=== PATIENT | male | born 1975 | race African-American/Black ===

== ENCOUNTER 2019-01-18 02:23 | Emergency (ER) | payer OTHER ==
--- NOTE | 2019-01-18 02:25 | PDOC ---
History of Present Illness - General Chief Complaint: Constipation Stated Complaint: CONSTIPATION Time Seen by Provider: 01/18/19 02:25 - History of Present Illness Initial Comments: 01/18/19 03:03 This 43-year-old man with a history of gout and renal colic but no other chronic illnesses presents with a few day history of constipation. Patient states that about 4 days ago, he noted smaller bowel movements than normal. Over the last 48 hours, the patient has had difficulty having bowel movement, stating that his stool was very hard. He has taken stool softeners and Ex-Lax today without successful bowel movement. He denies significant abdominal pain or nausea/vomiting. No history of gastrointestinal issues. He states that he is constipated "rarely" ; he does not eat much fiber in his diet. The only recent dietary change that he can recall is eating more pizza than usual. He denies any daily medications Past History - Past Medical History Allergies/Adverse Reactions: Allergies Allergy/AdvReac Type Severity Reaction Status Date / Time No Known Allergies Allergy Verified 02/26/16 10:16 Home Medications: Ambulatory Orders Oxycodone HCl/Acetaminophen [Percocet 5-325 mg Tablet] 1 - 2 tab PO Q6H #10 tab MDD 8 02/26/16 Tamsulosin HCl [Flomax -] 0.4 mg PO DAILY #14 capsule 02/26/16 - Suicide/Smoking/Psychosocial Hx Smoking Status: No Smoking History: Never smoked Number of Cigarettes Smoked Daily: 0 Hx Alcohol Use: No Drug/Substance Use Hx: No Substance Use Type: None Review of Systems - Review of Systems Able to Perform ROS?: Yes Comments:: 12 point review of systems is negative except for what is noted in the history of present illness *Physical Exam - Physical Exam Comments: GENERAL: Adult male, alert and oriented times 3 in no acute distress ABDOMEN:.normal bowel sounds No guarding,tenderness or rebound.No masses No distention. RECTAL: No evidence of external hemorrhoids/fissures or other abnormality of the anus Moderately hard stool felt just beyond rectal ampulla; no masses or other abnormality EXTREMITIES: Normal range of motion, no edema. No clubbing or cyanosis. No erythema, or tenderness. NEUROLOGICAL: Cranial nerves II through XII grossly intact. Normal speech. No focal neurological deficits. Medical Decision Making - Medical Decision Making This 43-year-old man without significant chronic illness or ingestion of medications causing constipation, presents with a few day history of difficulty in having a bowel movement . No significant abdominal pain or vomiting. Exam as noted Manual disimpaction of hard stool felt in the rectum attempted but stool could not be reached. Since patient is not debilitated, administration of commercially available enemas can be done at home. Patient is instructed to start with oil retention enema followed by water-based enema. Also, advised regarding daily fiber, both increased in the diet through fruits/vegetables and through daily supplement such as Metamucil or Citrucel. He should drink plenty of water daily. Laxatives such as MiraLAX/mag citrate also discussed. The patient should return to the emergency room if he has severe abdominal pain or vomiting. He should follow-up with his general medical doctor within the next 5-7 days *DC/Admit/Observation/Transfer Diagnosis at time of Disposition: Constipation Qualifiers: Constipation type: unspecified constipation type Qualified Code(s): K59.00 - Constipation, unspecified - Discharge Dispostion Disposition: HOME Condition at time of disposition: Stable - Referrals - Patient Instructions Printed Discharge Instructions: Constipation Additional Instructions: Use oil-based enema followed by water-based enema tonight as discussed Drink plenty of water Metamucil/Citrucel daily as described; increase fruits and vegetables in your diet Consider MiraLAX daily if you find you are becoming constipated more frequently Return to ER if you have worsening abdominal pain or experience nausea/vomiting Follow-up with your doctor within the next 5 days - Post Discharge Activity
[2019-01-18 02:28] VITALS: BP 126/90; PULSE 104; TEMP 98.5; BMI 50.4
== END 2019-01-18 02:58 | disposition home or self-care (01) ==
LOC: FER 02:23
DX: K59.00 Constipation, unspecified (principal); Z87.442 Personal history of urinary calculi
CPT/HCPCS: 99281-25

== ENCOUNTER 2019-08-06 20:19 | Inpatient (IN) | payer OTHER ==
[2019-08-06] MEDS ORDERED: ASPIRIN 81 MG CHEWABLE TABLETS PO ONE (20:35)
--- NOTE | 2019-08-06 20:37 | PDOC ---
Rapid Medical Evaluation Chief Complaint: Shortness of Breath Time Seen by Provider: 08/06/19 20:33 Medical Evaluation: Allergies Allergy/AdvReac Type Severity Reaction Status Date / Time No Known Allergies Allergy Verified 02/26/16 10:16 08/06/19 20:35 Pt c/o: sudden onset of CP while at work performing mod strenous activity, no SOB, no med hx, no calf pain, no sx or travel pta on brief exam: lcta, o2 sat 94 with hr at 110, Pt ordered for: cardiac w/u , d- dimer, o2 Pt to proceed to the ED Discharge Disposition - Diagnosis Chest tightness, Pulmonary embolism - Discharge Dispostion Condition at time of disposition: Guarded - Referrals - Patient Instructions - Post Discharge Activity
[2019-08-06] MEDS ORDERED: ASPIRIN 81 MG CHEWABLE TABLETS ONE (20:44)
--- NOTE | 2019-08-06 20:44 | PDOC ---
Attending Attestation - Resident Resident Name: YordanjesusWing - ED Attending Attestation I have performed the following: I have examined & evaluated the patient, The case was reviewed & discussed with the resident, I agree w/resident's findings & plan, Exceptions are as noted - HPI HPI: 08/06/19 21:12 Mr. 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 This morning while at work, he was lifting something heavy and noted chest pain Since then he has had midsternal chest pain which is intermittent, no radiation to the arm, jaw, back Pain is exacerbated by lifting, walking Pain has been present since 9 am and has not improved Pt notes feeling winded, and short of breath He has to go up 2 flights of stairs to get home and when he did that today, he felt very breathless He has had not significant cough or fever No prior episodes like this Most recent travel was to [place] in April No prior [place] No personal history of DM, HTN, HLD Pt does not use tobacco, marijuanna, vape or alcohol in excess - Physicial Exam PE: 08/06/19 20:46 GENERAL: The patient is in no acute distress, obese ENT: Ears normal, nares patent, oropharynx clear without exudates. Moist mucous membranes. NECK: Normal range of motion, supple LUNGS: Breath sounds equal, clear to auscultation bilaterally. No wheezes, and no crackles. HEART:Regular rate and rhythm, normal S1 and S2 without murmur, rub or gallop. ABDOMEN: Soft, nontender, normoactive bowel sounds. EXTREMITIES: Normal range of motion, no edema. NEUROLOGICAL: Cranial nerves II through XII grossly intact. Normal speech. No focal neurological deficits. SKIN: Warm, Dry, normal turgor, no rashes or lesions noted. 08/06/19 21:17 - Critical Care Time Total Critical Care Time: 120 Critical Care Statement: The care of this patient involved high complexity decision making to prevent further life threatening deterioration of the patient 's condition and/or to evaluate & treat vital organ system(s) failure or risk of failure. - Medical Decision Making 08/06/19 20:44 EKG: ST rate of 106 bpm, axis nml, intervals nml (pr:146ms, QRS:90ms, QTc:459ms) , no ST elevation, t wave inversions noted II, III, aVF, v3-v6 There are not prior EKGs for comparison 08/06/19 20:45 08/06/19 21:17 Pt differential is broad and includes cardiac ischemia, pe, asthma exacerbation, pneumonia, pneumothorax, pleural effusion, costochondritis, pericarditis, GERD. Will do: Labs CXR Possibly CTA Re Assess 08/06/19 21:33 CXR: no infiltrate seen, no cardiomegaly, no mediastinal widening, no pleural effusion 08/06/19 21:34 Laboratory Tests 08/06/19 08/06/19 20:21 20:21 WBC 10.7 H Hgb 15.1 Hct 45.9 Plt Count 230 INR 1.16 H 08/06/19 21:[address] scan to bring this patient over for CTA He tells me that he is by himself and already has 3 patients waiting Laboratory Tests 08/06/19 08/06/19 20:21 20:51 D-Dimer 7111 H Urine Blood 1+ H Urine Nitrite Negative Ur Leukocyte Esterase Negative 08/06/19 23:[address] Azar re: CT finding Pt has central PE Guiaic Heparin ICU Sub massive PE
--- NOTE | 2019-08-06 20:55 | PDOC ---
History of Present Illness - General Chief Complaint: Shortness of Breath Stated Complaint: SHORTNESS BREATHING Time Seen by Provider: 08/06/19 20:33 - History of Present Illness Initial Comments: The pt is a 43M w/ a history of gout who presents for evaluation of 12 hours of shortness of breath and intermittent chest tightness. The shortness of breath and tightness started while lifting things at work, is worse with exertion, and mildly improved with rest, it has not completely resolved at any point throughout the day. He endorses current mild SOB and chest tightness. He denies HUNT, vision changes, fevers/chills, N/V/C/D, dysuria, hematuria, or blood in his stool. 08/06/19 20:57 Past History - Past Medical History Allergies/Adverse Reactions: Allergies Allergy/AdvReac Type Severity Reaction Status Date / Time No Known Allergies Allergy Verified 02/26/16 10:16 Home Medications: Ambulatory Orders Oxycodone HCl/Acetaminophen [Percocet 5-325 mg Tablet] 1 - 2 tab PO Q6H #10 tab MDD 8 02/26/16 Tamsulosin HCl [Flomax -] 0.4 mg PO DAILY #14 capsule 02/26/16 COPD: No Other medical history: GOUT - Immunization History Immunization Up to Date: No - Psycho Social/Smoking Cessation Hx Smoking Status: No Smoking History: Never smoked Number of Cigarettes Smoked Daily: 0 Information on smoking cessation initiated: No Hx Alcohol Use: No Drug/Substance Use Hx: No Substance Use Type: None Review of Systems - Review of Systems Able to Perform ROS?: Yes Comments:: GENERAL/CONSTITUTIONAL: No fever or chills. No weakness HEAD, EYES, EARS, NOSE AND THROAT: No change in vision. No change in hearing. No sore throat CARDIOVASCULAR: +chest tightness/SOB RESPIRATORY: Denies cough, hemoptysis GASTROINTESTINAL: No nausea, vomiting, diarrhea or constipation GENITOURINARY: No dysuria, frequency, or change in urination MUSCULOSKELETAL: No joint or muscle swelling or pain. No neck or back pain SKIN: No rash NEUROLOGIC: No headache, vertigo, loss of consciousness, or change in strength/ sensation ENDOCRINE: No increased thirst. No abnormal weight change HEMATOLOGIC/LYMPHATIC: No anemia, easy bleeding, or history of blood clots ALLERGIC/IMMUNOLOGIC: No hives or skin allergy 08/06/19 20:55 Is the patient limited [place] proficient: No *Physical Exam - Vital Signs Last Vital Signs Temp Pulse Resp BP Pulse Ox 98.4 F 112 H 17 160/85 95 08/06/19 20:33 08/06/19 20:33 08/06/19 20:33 08/06/19 20:33 08/06/19 20:33 - Physical Exam Comments: GENERAL: Awake, alert, and oriented to person/place/time, in no acute distress HEAD: No signs of trauma, normocephalic, atraumatic EYES: PERRLA, EOMI, sclera anicteric, conjunctiva clear ENT: Hearing grossly normal, nares patent, oropharynx clear without exudates. Moist mucosa LUNGS: No distress, speaks in full sentences, clear to auscultation bilaterally HEART: Regular rate and rhythm, normal S1 and S2, no murmurs appreciated, peripheral pulses normal and equal bilaterally ABDOMEN: Soft, protuberant, nontender, normoactive bowel sounds. No guarding, no rebound EXTREMITIES: Normal inspection, Normal range of motion, no edema. No clubbing or cyanosis NEUROLOGICAL: Cranial nerves II through XII grossly intact. Normal speech, normal gait, no focal sensorimotor deficits SKIN: Warm, Dry 08/06/19 20:55 ED Treatment Course - LABORATORY CBC & Chemistry Diagram: 08/06/19 20:21 08/06/19 20:21 Medical Decision Making - Medical Decision Making The pt is a 43M w/ a history of gout who presents for evaluation of 12 hours of shortness of breath and intermittent chest tightness. ED Course Labs ordered from E CXR ECG ASA 162mg PO once 08/06/19 21:16 D-dimer elevated -Will obtain CTA chest WBC 10.7 Hbg 15.1 Trop I 0.14 LFTs wnl Case discussed w/ Dr. Ellis -Will obtain ECHO and start heparin gtt ICU consulted Will admit under Dr. Levy 08/06/19 23:21 Discharge - Discharge Information Problems reviewed: Yes Clinical Impression/Diagnosis: Chest tightness Pulmonary embolism Qualifiers: Pulmonary embolism type: saddle Chronicity: acute Acute cor pulmonale presence : without acute cor pulmonale Qualified Code(s): I26.92 - Saddle embolus of pulmonary artery without acute cor pulmonale Condition: Guarded - Admission Yes - Follow up/Referral - Patient Discharge Instructions - Post Discharge Activity
[2019-08-06 21:02] LABS: BASO % 1.4 % (0-2.0); EOS % 2.7 % (0-4.5); HEMATOCRIT 45.9 % (35.4-49); HEMOGLOBIN 15.1 GM/dL (11.7-16.9); LYMPH % 33.7 % (8-40); MCHC 32.8 g/dl (32.0-35.9); MEAN CELL VOLUME 88.5 fl (80-96); MEAN PLT VOLUME 8.2 fl (7.5-11.1); MONO % 9.9 % (3.8-10.2); NEUT % 52.3 % (42.8-82.8); PLATELET COUNT 230 K/MM3 (134-434); RBC 5.19 M/mm3 (4.00-5.60); RDW 14.2 % (11.9-15.9); WHITE BLOOD COUNT 10.7 K/mm3 (4.0-10.0)
[2019-08-06 21:04] LABS: EPI CELLS 0.7 /HPF (0-5/HPF); HYALINE CASTS 3 /lpf (0-8); URINE APPEARANCE CLEAR; URINE BACTERIA 0.2 /hpf (NEGATIVE); URINE BILIRUBIN NEGATIVE (NEGATIVE); URINE COLOR YELLOW; URINE GLUCOSE (UA) NEGATIVE (NEGATIVE); URINE KETONE TRACE (NEGATIVE); URINE LEUK ESTERASE NEGATIVE (NEGATIVE); URINE NITRITE NEGATIVE (NEGATIVE); URINE PROTEIN NEGATIVE (NEGATIVE); URINE RBC 4 /hpf (0-4); URINE UROBILINOGEN 0.2 mg/dL (0.2-1.0); URINE WBC 1 /hpf (0-5)
[2019-08-06 21:24] LABS: INR 1.16 (0.83-1.09); PROTHROMBIN TIME (PATIENT) 13.7 SEC (9.7-13.0)
[2019-08-06 21:35] LABS: ALBUMIN 3.6 g/dl (3.4-5.0); BILIRUBIN,TOTAL 0.4 mg/dL (0.2-1); BLOOD UREA NITROGEN 15.6 mg/dL (7-18); CALCIUM 8.8 mg/dL (8.5-10.1); CREATININE 1.3 mg/dL (0.55-1.3); MAGNESIUM 1.9 mg/dL (1.8-2.4); POTASSIUM 3.8 mmol/L (3.5-5.1); TOT PROT 7.6 g/dl (6.4-8.2)
[2019-08-06] MEDS ORDERED: HEPARIN NA (PORCINE) 5,000 UNITS/ML 1ML VIAL IVPUSH PRN (23:17)
[2019-08-06 23:26] LABS: ACTIVATED PTT 38.8 SECONDS (25.2-36.5)
[2019-08-06] MEDS ORDERED: HEPARIN INFUSION - 25,000 UNITS/500 ML INFUS.BAG IVPB ONE (23:54)
[2019-08-07] MEDS: HEPARIN - 25,000 UNIT in SODIUM CHLORIDE 495 ML IV SCH (00:21)
--- NOTE | 2019-08-07 00:52 | CONSULT ---
Consultation: REQUESTING PROVIDER: Dr. Masterson CONSULT REQUEST: We have been asked to medically evaluate this patient for saddle PE. HISTORY OF PRESENT ILLNESS: 43 y/o M with PMH morbid obesity, gout, lumbar herniated disc, who presented for sudden SOB that occurred this AM. 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 States that he is used to this physical work, however today he became increasingly SOB while working. "Started to gasp for air." His coworkers recommended some stretching exercises, which helped relieve his discomfort. Pt went about his work day, and later in the evening, he had increased STOVER while ascending his stairs, which he usually does not have. For this reason, he came to the ED for further evaluation. In the ED, pt with desaturation to low 90's, improved on 2L NC. Also with sinus tach of low 100's. D-dimer elevated, thus pt underwent CTA which revealed prominent acute embolus in distal aspect of R pulm artery, extending into R lower lobar artery. Also with saddle embolus along bifurcation of the main pulm a. trunk. Pt started on hep gtt. Currently hemodynamically stable w/ BP 140/90, sat high 90' s on 2L NC. ICU consulted for saddle PE and concern of potential decompensation / development of obstructive shock. Pt endorses recent 3hr car ride to [place] on Saturday. Traveled to [place] in April. Otherwise, without hemoptysis, hx malignancy, immobilization, recent sx , new medications, familial clotting d/o, smoking hx, or LE swelling or erythema. Denies HUNT, fever, chills, changes in urinary or bowel function. PMH: as above PsxH: tonsillectomy, septal deviation sx, auricular sx meds: colchicine, allopurinol allergies: NKDA FH: parents - HTN, DM, HLD SH: works for [employer]. denies cigarette or recreational drug use. drinks alcohol rarely REVIEW OF SYSTEMS: +SOB +chest pressure PHYSICAL EXAMINATION Vital Signs - 24 hr 08/06/19 08/06/19 08/06/19 20:33 21:14 23:27 Temperature 98.4 F Pulse Rate 112 H 104 H Pulse Rate [ 104 H 95 H Left] Respiratory 17 20 16 Rate Blood Pressure 160/85 Blood Pressure 145/105 H 144/89 [Left Arm] O2 Sat by Pulse 95 97 93 L Oximetry (%) GENERAL: Awake, alert, and fully oriented, resting. in NAD on 2L NC HEAD: Normal with no signs of trauma. EYES: Pupils equal, round and reactive to light, extraocular movements intact, sclera anicteric, conjunctiva clear. No lid lag. EARS, NOSE, THROAT: Ears normal, nares patent, oropharynx clear without exudates. Moist mucous membranes. NECK: Normal range of motion, supple LUNGS: CTA b/l. restricted inspiratory effort. HEART: tachycardic rate and rhythm, normal S1 and S2 without murmur, rub or gallop. ABDOMEN: Soft, obese, nontender, not distended, normoactive bowel sounds LOWER EXTREMITIES: 2+ pt pulses, warm, well-perfused. No calf tenderness. No peripheral edema. NEUROLOGICAL: Cranial nerves II-XII intact. Laboratory Results 08/06/19 08/06/19 08/06/19 20:21 20:21 20:21 WBC 10.7 H Hgb 15.1 Hct 45.9 Plt Count 230 PTT (Actin FS) 38.8 H D-Dimer Sodium 144 Potassium 3.8 Chloride 109 H Random Glucose 109 H Calcium 8.8 Magnesium 1.9 Creatine Kinase 446 H Troponin I 0.14 H Urine Blood Urine Urobilinogen 08/06/19 08/06/19 20:21 20:51 PTT (Actin FS) D-Dimer 7111 H Sodium Troponin I Urine Blood 1+ H Urine Nitrite Negative Urine Bilirubin Negative Urine Urobilinogen 0.2 EKG: sinus tach, +106bpm, nl axis, TWI 2,3 avF, v4-v6. no previous to compare to Chest CTA: prominent acute embolus is seen within the distal aspect of R pulm artery extending into R lower lobar artery. Note is also made of a saddle embolus along the bifurcation of the main pulmonary artery trunk. There appears to be mild leftward displacement of the interventricular cardiac septum suggestive of possible increased pulmonary arterial pressure. RH strain ASSESSMENT/PLAN: 43 y/o M with PMH morbid obesity, gout, lumbar herniated disc, who presented for sudden SOB that occurred this AM. CTA revealed prominent acute embolus in distal aspect of R pulm artery, extending into R lower lobar artery. Also with saddle embolus along bifurcation of the main pulm a. trunk. ICU consulted for saddle PE and concern of potential decompensation/ development of obstructive shock. #Neuro -AAO x 3, neuro intact #Pulm +acute embolus distal R pulm artery, extending into R lower lobar artery +saddle PE -wells for PE: score 1.5. low risk . pt w/ gout can be risk fx per some studies -risk fx: morbid obesity, recent trip [place] -w/submassive PE, currently hemodynamically stable -c/w NC 02 as needed to maintain sat -started on hep gtt. discussed risks and benefits w/ pt of a/c. agreeable no contraindications -f/u ECHO to check for RH strain. w/ troponins 0.14. c/t trend -will need hypercoaguability w/u -f/u duplex LE check for DVT -ER staff d/w IR. pending ECHO, review of images to determine if needs thrombolysis #F/E/N not requiring IVF at this time continue to follow lytes NPO in case of procedure AM #PPX hep gtt #Dispo admit to ICU Dispo: We will continue to follow the patient. Thank you for this consultative opportunity. Visit type - Emergency Visit Emergency Visit: Yes ED Registration Date: 08/06/19 Care time: The patient presented to the Emergency Department on the above date and was hospitalized for further evaluation of their emergent condition. - New Patient This patient is new to me today: Yes Date on this admission: 08/07/19 - Critical Care Critical Care patient: Yes Total Critical Care Time (in minutes): 46 Critical Care Statement: The care of this patient involved high complexity decision making to prevent further life threatening deterioration of the patient 's condition and/or to evaluate & treat vital organ system(s) failure or risk of failure.
[2019-08-07 07:15] LABS: BASO % 0.4 % (0-2.0); EOS % 3.5 % (0-4.5); HEMATOCRIT 42.7 % (35.4-49); HEMOGLOBIN 14.2 GM/dL (11.7-16.9); LYMPH % 43.6 % (8-40); MCH 29.6 pg (25.7-33.7); MCHC 33.3 g/dl (32.0-35.9); MEAN CELL VOLUME 89.1 fl (80-96); MEAN PLT VOLUME 8.3 fl (7.5-11.1); MONO % 9.3 % (3.8-10.2); NEUT % 43.2 % (42.8-82.8); PLATELET COUNT 202 K/MM3 (134-434); RBC 4.79 M/mm3 (4.00-5.60); WHITE BLOOD COUNT 7.4 K/mm3 (4.0-10.0)
[2019-08-07 07:25] LABS: BLOOD UREA NITROGEN 12.9 mg/dL (7-18); CALCIUM 8.7 mg/dL (8.5-10.1); CREATININE 1.1 mg/dL (0.55-1.3); POTASSIUM 3.7 mmol/L (3.5-5.1)
[2019-08-07 08:03] LABS: INR 1.08 (0.83-1.09); PROTHROMBIN TIME (PATIENT) 12.7 SEC (9.7-13.0)
[2019-08-07 09:44] LABS: ACTIVATED PTT 49.2 SECONDS (25.2-36.5)
[2019-08-07] MEDS: HEPARIN NA (PORCINE) 5,000 UNITS/ML 1ML VIAL IVPUSH PRN (09:53)
[2019-08-07] MEDS ORDERED: MUPIROCIN 2% TOPICAL OINTMENT FOR DECOLONIZATION NS SCH (10:00)
--- NOTE | 2019-08-07 10:27 | ECHO ---
Name: PATSY LOPEZ Exam:Adult Echocardiogram Study Date: 08/07/2019 07:33 AM Age: 43 yrs Reason For Study: Pericardial Effusion Height: 69 in Weight: 300 lb BSA: 2.5 m2 Procedure The study was technically difficult with many images being suboptimal in quality. Left Ventricle Left ventricular systolic function is grossly normal. Ejection Fraction = 50-55%. The transmitral spe ctral Doppler flow pattern is normal for age. Right Ventricle The right ventricle is not well visualized. The right ventricle is mildly dilated. The right ventricu lar systolic function is grossly normal. Atria Normal left and right atrial size and function. Mitral Valve The mitral valve is normal in structure and function. There is trace mitral regurgitation. Tricuspid Valve There is Trace to mild tricuspid regurgitation. There was insufficient TR detected to calculate RV sy stolic pressure. Aortic Valve The aortic valve opens well. No hemodynamically significant valvular aortic stenosis. No aortic regur gitation is present. Pulmonic Valve The pulmonic valve is not well seen, but is grossly normal. Trace pulmonic valvular regurgitation. Great Vessels The aortic root is normal size. Pericardium/Pleura There is no pericardial effusion. Interpretation Summary The study was technically difficult with many images being suboptimal in quality. Left ventricular systolic function is grossly normal. The right ventricle is not well visualized. The right ventricle is mildly dilated. The right ventricular systolic function is grossly normal. There is trace mitral regurgitation. There is Trace to mild tricuspid regurgitation. There was insufficient TR detected to calculate RV systolic pressure. There is no pericardial effusion. MD Cummings *Angie 08/07/2019 10:26 AM
--- NOTE | 2019-08-07 10:37 | PN ---
Teaching Attending Note Name of Resident: Destin Potter ATTENDING PHYSICIAN STATEMENT I saw and evaluated the patient. I reviewed the resident's note and discussed the case with the resident. I agree with the resident's findings and plan as documented. SUBJECTIVE: Patient seen and examined in the ICU. Awake and alert. Some mild left sided chest discomfort. No dizziness. For IR VTE intervention today. Intake & Output 08/04/19 08/05/19 08/06/19 08/07/19 23:59 23:59 23:59 23:59 Weight 329 lb 12.8 oz 329 lb 12.8 oz Last Vital Signs Temp Pulse Resp BP Pulse Ox 98.0 F 76 17 122/89 94 L 08/07/19 10:00 08/07/19 10:00 08/07/19 10:00 08/07/19 10:00 08/07/19 07:51 Active Medications Chlorhexidine Gluconate (Hibiclens For Decolonization -) 1 applic TP HS ALFONZO Heparin Sodium (Porcine) (Heparin -) 1,000 unit IVPUSH PRN PRN PRN Reason: Heparin Last Admin: 08/07/19 09:53 Dose: 1,000 unit Heparin Sodium (Porcine) (Heparin -) 5,000 unit IVPUSH PRN PRN PRN Reason: Heparin Heparin Sodium (Porcine) 25, (000 unit/ Sodium Chloride) 500 mls @ 20 mls/hr IV TITR ALFONZO; Protocol Last Admin: 08/07/19 00:21 Dose: 1,000 unit/hr, 20 mls/hr Influenza Virus Vaccine Quadrival (Flulaval Quad ) 60 mcg IM .ONCE ONE Stop: 08/07/19 11:01 Mupirocin (Bactroban Ointment (For Decolonization) -) 1 applic NS BID ALFONZO Stop: 08/12/19 09:59 GENERAL: Awake, alert, and oriented, NAD. HEAD: Normal with no signs of trauma. EYES: Pupils equal, round and reactive to light, extraocular movements intact, sclera anicteric, conjunctiva clear. No lid lag. EARS, NOSE, THROAT: Ears normal, nares patent, oropharynx clear without exudates. Moist mucous membranes. NECK: Normal range of motion, supple LUNGS: CTA b/l. restricted inspiratory effort. HEART: tachycardic rate and rhythm, normal S1 and S2 without murmur, rub or gallop. ABDOMEN: Soft, obese, nontender, not distended, normoactive bowel sounds LOWER EXTREMITIES: 2+ pt pulses, warm, well-perfused. No calf tenderness. No peripheral edema. NEUROLOGICAL: Non-focal Laboratory Results - last 24 hr 08/06/19 08/06/19 08/06/19 20:21 20:21 20:21 WBC 10.7 H RBC 5.19 Hgb 15.1 Hct 45.9 MCV 88.5 MCH 29.0 MCHC 32.8 RDW 14.2 Plt Count 230 MPV 8.2 Absolute Neuts (auto) 5.6 Neutrophils % 52.3 D Lymphocytes % 33.7 D Monocytes % 9.9 Eosinophils % 2.7 D Basophils % 1.4 D Nucleated RBC % 0 PT with INR 13.70 H INR 1.16 H PTT (Actin FS) 38.8 H D-Dimer Sodium 144 Potassium 3.8 Chloride 109 H Carbon Dioxide 27 Anion Gap 8 BUN 15.6 Creatinine 1.3 Est GFR (CKD-EPI)AfAm 77.45 Est GFR (CKD-EPI)NonAf 66.83 Random Glucose 109 H Calcium 8.8 Magnesium 1.9 Total Bilirubin 0.4 AST 35 ALT 48 Alkaline Phosphatase 75 Creatine Kinase 446 H Creatine Kinase Index 0.5 CK-MB (CK-2) 2.4 Troponin I 0.14 H Total Protein 7.6 Albumin 3.6 Urine Color Urine Appearance Urine pH Ur Specific [place] Urine Protein Urine Glucose (UA) Urine Ketones Urine Blood Urine Nitrite Urine Bilirubin Urine Urobilinogen Ur Leukocyte Esterase Urine WBC (Auto) Urine RBC (Auto) Urine Casts (Auto) U Epithel Cells (Auto) Urine Bacteria (Auto) Stool Occult Blood 08/06/19 08/06/19 08/07/19 20:21 20:51 01:00 WBC RBC Hgb Hct MCV MCH MCHC RDW Plt Count MPV Absolute Neuts (auto) Neutrophils % Lymphocytes % Monocytes % Eosinophils % Basophils % Nucleated RBC % PT with INR INR PTT (Actin FS) D-Dimer 7111 H Sodium Potassium Chloride Carbon Dioxide Anion Gap BUN Creatinine Est GFR (CKD-EPI)AfAm Est GFR (CKD-EPI)NonAf Random Glucose Calcium Magnesium Total Bilirubin AST ALT Alkaline Phosphatase Creatine Kinase Creatine Kinase Index CK-MB (CK-2) Troponin I Total Protein Albumin Urine Color Yellow Urine Appearance Clear Urine pH 6.0 Ur Specific [place] 1.022 Urine Protein Negative Urine Glucose (UA) Negative Urine Ketones Trace H Urine Blood 1+ H Urine Nitrite Negative Urine Bilirubin Negative Urine Urobilinogen 0.2 Ur Leukocyte Esterase Negative Urine WBC (Auto) 1 Urine RBC (Auto) 4 Urine Casts (Auto) 3 U Epithel Cells (Auto) 0.7 Urine Bacteria (Auto) 0.2 Stool Occult Blood Negative 08/07/19 08/07/19 08/07/19 06:40 06:40 06:40 WBC 7.4 RBC 4.79 Hgb 14.2 Hct 42.7 MCV 89.1 MCH 29.6 MCHC 33.3 RDW 14.0 Plt Count 202 MPV 8.3 Absolute Neuts (auto) 3.2 Neutrophils % 43.2 Lymphocytes % 43.6 H D Monocytes % 9.3 Eosinophils % 3.5 Basophils % 0.4 Nucleated RBC % 0 PT with INR 12.70 INR 1.08 PTT (Actin FS) 49.2 H D-Dimer Sodium 141 Potassium 3.7 Chloride 108 H Carbon Dioxide 28 Anion Gap 5 L BUN 12.9 Creatinine 1.1 Est GFR (CKD-EPI)AfAm 94.79 Est GFR (CKD-EPI)NonAf 81.78 Random Glucose 109 H Calcium 8.7 Magnesium Total Bilirubin AST ALT Alkaline Phosphatase Creatine Kinase Creatine Kinase Index CK-MB (CK-2) Troponin I Total Protein Albumin Urine Color Urine Appearance Urine pH Ur Specific [place] Urine Protein Urine Glucose (UA) Urine Ketones Urine Blood Urine Nitrite Urine Bilirubin Urine Urobilinogen Ur Leukocyte Esterase Urine WBC (Auto) Urine RBC (Auto) Urine Casts (Auto) U Epithel Cells (Auto) Urine Bacteria (Auto) Stool Occult Blood IMP: Acute embolus distal Right pulmonary artery with extension into Right lower lobar artery (?) provoked Submassive PE: evidence of Right ventricular strain on CT imaging Suspected OSAS Morbid Obesity AC with Heparin per protocol For IR VTE intervention O2 as needed Check ECHO Will need hypercoaguable work up ICU monitoring for tPA infusion Dr Gonzalez Critical care time spent in reviewing chart, evaluating patient and formulating plan - 36 minutes.
[2019-08-07] MEDS ORDERED: FLU VACCINE QUAD 60 MCG/0.5 ML (MDV 19-20) IM ONE (11:00)
--- NOTE | 2019-08-07 12:17 | HP ---
Admitting History and Physical - Primary Care Physician PCP: Brie Levy I - Admission History Source: Patient, Medical Record Limitations to Obtaining History: No Limitations - Past Medical History Pulmonary: Yes: Pulmonary Embolus Rheumatology: Yes: Gout - Smoking History Smoking history: Never smoked Have you smoked in the past 12 months: No Aproximately how many cigarettes per day: 0 - Alcohol/Substance Use Hx Alcohol Use: No - Social History History of Recent Travel: Yes ([place] in April) Home Medications - Allergies Allergies/Adverse Reactions: Allergies Allergy/AdvReac Type Severity Reaction Status Date / Time No Known Allergies Allergy Verified 08/07/19 03:07 - Home Medications Home Medications: Ambulatory Orders Oxycodone HCl/Acetaminophen [Percocet 5-325 mg Tablet] 1 - 2 tab PO Q6H #10 tab MDD 8 02/26/16 Tamsulosin HCl [Flomax -] 0.4 mg PO DAILY #14 capsule 02/26/16 Allopurinol [Zyloprim -] 100 mg PO DAILY 08/07/19 Colchicine [Colcrys] 0.6 mg PO DAILY 08/07/19 Review of Systems - Review of Systems Constitutional: reports: No Symptoms Eyes: reports: No Symptoms HENT: reports: No Symptoms Neck: reports: No Symptoms Cardiovascular: reports: Chest Pain Respiratory: reports: SOB on Exertion Gastrointestinal: reports: No Symptoms Genitourinary: reports: No Symptoms Breasts: reports: No Symptoms Reported Musculoskeletal: reports: No Symptoms Integumentary: reports: No Symptoms Neurological: reports: No Symptoms Endocrine: reports: No Symptoms Hematology/Lymphatic: reports: No Symptoms Psychiatric: reports: No Symptoms Physical Examination Vital Signs: Vital Signs Temperature 98.0 F 08/07/19 10:00 Pulse Rate 76 08/07/19 10:00 Respiratory Rate 17 08/07/19 10:00 Blood Pressure 122/89 08/07/19 10:00 O2 Sat by Pulse Oximetry (%) 94 L 08/07/19 07:51 Constitutional: Yes: Well Nourished, Calm, Obese Eyes: Yes: Conjunctiva Clear, EOM Intact HENT: Yes: Atraumatic, Normocephalic Neck: Yes: Supple, Trachea Midline Cardiovascular: Yes: Regular Rate and Rhythm Respiratory: Yes: Regular, CTA Bilaterally Gastrointestinal: Yes: Normal Bowel Sounds, Soft, Abdomen, Obese ...Rectal Exam: Yes: Deferred Renal/: Yes: WNL Breast(s): Yes: WNL Extremities: Yes: WNL Edema: No Peripheral Pulses WNL: Yes Integumentary: Yes: WNL Neurological: Yes: Alert ...Motor Strength: WNL Psychiatric: Yes: Alert, Oriented Labs: CBC, BMP 08/07/19 06:40 08/07/19 06:40 Imaging - Results Chest X-ray: Report Reviewed (Neg) Cat Scan: Report Reviewed (Chest CT showed saddle emboli along bifurcation of main pulmonary artery trunk) Ultrasound: Report Reviewed (Neg for DVT) Assessment/Plan 43 y/o male admitted for 12 hrs of chest pain and STOVER. PMHx includes Obesity, Gout and BPH. Saddle emboli noted on Chest CT. Awaiting interventional radiology.
--- NOTE | 2019-08-07 12:39 | PN ---
Physical Exam: SUBJECTIVE: Patient seen and examined at bedside in the ICU. Awake, alert. Denies shortness of breath. Reports mild left sided chest discomfort. Echo done at bedside today, IR deferred, repeat echo on Saturday. Patient on heparin gtt. OBJECTIVE: Vital Signs Period Temp Pulse Resp BP Sys/Mo Pulse Ox Last 24 Hr 97.7 F-98.7 F 70-112 14-22 122-160/67-114 91-97 GENERAL: The patient is awake, alert, and fully oriented, in no acute distress. HEAD: Normal with no signs of trauma. EYES: PERRL, extraocular movements intact, sclera anicteric, conjunctiva clear. No ptosis. ENT: Ears normal, nares patent, oropharynx clear without exudates, moist mucous membranes. NECK: Trachea midline, full range of motion, supple. LUNGS: Breath sounds equal, clear to auscultation bilaterally, decreased inspiratory effort, no accessory muscle use. HEART: Tachycardic, S1, S2 without murmur, rub or gallop. ABDOMEN: Soft, obese, nontender, nondistended, no guarding, no rebound, no hepatosplenomegaly, no masses. EXTREMITIES: 2+ pulses, warm, well-perfused, no edema. No calf tenderness. NEUROLOGICAL: Cranial nerves II through XII grossly intact. Normal speech, gait not observed. PSYCH: Normal mood, normal affect. SKIN: Warm, dry, normal turgor, no rashes or lesions noted Laboratory Results - last 24 hr 08/06/19 08/06/19 08/06/19 20:21 20:21 20:21 WBC 10.7 H RBC 5.19 Hgb 15.1 Hct 45.9 MCV 88.5 MCH 29.0 MCHC 32.8 RDW 14.2 Plt Count 230 MPV 8.2 Absolute Neuts (auto) 5.6 Neutrophils % 52.3 D Lymphocytes % 33.7 D Monocytes % 9.9 Eosinophils % 2.7 D Basophils % 1.4 D Nucleated RBC % 0 PT with INR 13.70 H INR 1.16 H PTT (Actin FS) 38.8 H D-Dimer Sodium 144 Potassium 3.8 Chloride 109 H Carbon Dioxide 27 Anion Gap 8 BUN 15.6 Creatinine 1.3 Est GFR (CKD-EPI)AfAm 77.45 Est GFR (CKD-EPI)NonAf 66.83 Random Glucose 109 H Calcium 8.8 Magnesium 1.9 Total Bilirubin 0.4 AST 35 ALT 48 Alkaline Phosphatase 75 Creatine Kinase 446 H Creatine Kinase Index 0.5 CK-MB (CK-2) 2.4 Troponin I 0.14 H Total Protein 7.6 Albumin 3.6 Urine Color Urine Appearance Urine pH Ur Specific [place] Urine Protein Urine Glucose (UA) Urine Ketones Urine Blood Urine Nitrite Urine Bilirubin Urine Urobilinogen Ur Leukocyte Esterase Urine WBC (Auto) Urine RBC (Auto) Urine Casts (Auto) U Epithel Cells (Auto) Urine Bacteria (Auto) Stool Occult Blood 08/06/19 08/06/19 08/07/19 20:21 20:51 01:00 WBC RBC Hgb Hct MCV MCH MCHC RDW Plt Count MPV Absolute Neuts (auto) Neutrophils % Lymphocytes % Monocytes % Eosinophils % Basophils % Nucleated RBC % PT with INR INR PTT (Actin FS) D-Dimer 7111 H Sodium Potassium Chloride Carbon Dioxide Anion Gap BUN Creatinine Est GFR (CKD-EPI)AfAm Est GFR (CKD-EPI)NonAf Random Glucose Calcium Magnesium Total Bilirubin AST ALT Alkaline Phosphatase Creatine Kinase Creatine Kinase Index CK-MB (CK-2) Troponin I Total Protein Albumin Urine Color Yellow Urine Appearance Clear Urine pH 6.0 Ur Specific [place] 1.022 Urine Protein Negative Urine Glucose (UA) Negative Urine Ketones Trace H Urine Blood 1+ H Urine Nitrite Negative Urine Bilirubin Negative Urine Urobilinogen 0.2 Ur Leukocyte Esterase Negative Urine WBC (Auto) 1 Urine RBC (Auto) 4 Urine Casts (Auto) 3 U Epithel Cells (Auto) 0.7 Urine Bacteria (Auto) 0.2 Stool Occult Blood Negative 08/07/19 08/07/19 08/07/19 06:40 06:40 06:40 WBC 7.4 RBC 4.79 Hgb 14.2 Hct 42.7 MCV 89.1 MCH 29.6 MCHC 33.3 RDW 14.0 Plt Count 202 MPV 8.3 Absolute Neuts (auto) 3.2 Neutrophils % 43.2 Lymphocytes % 43.6 H D Monocytes % 9.3 Eosinophils % 3.5 Basophils % 0.4 Nucleated RBC % 0 PT with INR 12.70 INR 1.08 PTT (Actin FS) 49.2 H D-Dimer Sodium 141 Potassium 3.7 Chloride 108 H Carbon Dioxide 28 Anion Gap 5 L BUN 12.9 Creatinine 1.1 Est GFR (CKD-EPI)AfAm 94.79 Est GFR (CKD-EPI)NonAf 81.78 Random Glucose 109 H Calcium 8.7 Magnesium Total Bilirubin AST ALT Alkaline Phosphatase Creatine Kinase Creatine Kinase Index CK-MB (CK-2) Troponin I Total Protein Albumin Urine Color Urine Appearance Urine pH Ur Specific [place] Urine Protein Urine Glucose (UA) Urine Ketones Urine Blood Urine Nitrite Urine Bilirubin Urine Urobilinogen Ur Leukocyte Esterase Urine WBC (Auto) Urine RBC (Auto) Urine Casts (Auto) U Epithel Cells (Auto) Urine Bacteria (Auto) Stool Occult Blood Active Medications Generic Name Dose Route Start Last Admin Trade Name Freq PRN Reason Stop Dose Admin Chlorhexidine Gluconate 1 applic 08/07/19 22:00 Hibiclens For Decolonization - TP HS ALFONZO Heparin Sodium (Porcine) 1,000 unit 08/06/19 23:17 08/07/19 09:53 Heparin - IVPUSH 1,000 unit PRN PRN Administration Heparin Heparin Sodium (Porcine) 5,000 unit 08/06/19 23:17 Heparin - IVPUSH PRN PRN Heparin Heparin Sodium (Porcine) 25, 500 mls @ 20 mls/hr 08/06/19 23:30 08/07/19 00: 21 000 unit/ Sodium Chloride IV 1,000 unit/hr TITR ALFONZO 20 mls/hr Administration Protocol 1,000 UNIT/HR Mupirocin 1 applic 08/07/19 10:00 Bactroban Ointment (For Decolonization) - NS 08/12/19 09:59 BID ALFONZO ASSESSMENT/PLAN: 43 y/o M with PMH morbid obesity, gout, lumbar herniated disc, who presented for sudden SOB that occurred this AM. CTA revealed prominent acute embolus in distal aspect of R pulm artery, extending into R lower lobar artery. Also with saddle embolus along bifurcation of the main pulm a. trunk. ICU consulted for saddle PE and concern of potential decompensation/ development of obstructive shock. #Neuro -AAO x 3, neuro intact #Pulm +acute embolus distal R pulm artery, extending into R lower lobar artery +saddle PE -wells for PE: score 1.5. low risk . pt w/ gout can be risk fx per some studies -risk fx: morbid obesity, recent trip Sat -w/submassive PE, currently hemodynamically stable -c/w NC O2 as needed to maintain sat -started on hep gtt. discussed risks and benefits w/ pt of a/c. agreed with plan. no contra-indications. -ECHO 08/07 morning shows mild RV dilation and grossly normal RV systolic function. w/ troponins 0.14. c/t trend -will need hypercoaguability w/u -f/u duplex LE check for DVT -IR deferred today, rpt echo Saturday #F/E/N not requiring IVF at this time continue to follow lytes reg diet as no IR today DVTPPX: hep gtt Dispo: continue ICU care Destin Potter MD PGY-1 Critical Care/ICU [phone] Visit type - Emergency Visit Emergency Visit: Yes ED Registration Date: 08/06/19 Care time: The patient presented to the Emergency Department on the above date and was hospitalized for further evaluation of their emergent condition. - New Patient This patient is new to me today: Yes Date on this admission: 08/07/19 - Critical Care Critical Care patient: Yes Total Critical Care Time (in minutes): 35 Critical Care Statement: The care of this patient involved high complexity decision making to prevent further life threatening deterioration of the patient 's condition and/or to evaluate & treat vital organ system(s) failure or risk of failure. ATTENDING PHYSICIAN STATEMENT I saw and evaluated the patient. I reviewed the resident's note and discussed the case with the resident. I agree with the resident's findings and plan as documented. SUBJECTIVE: OBJECTIVE: ASSESSMENT AND PLAN:
[2019-08-07] MEDS: MUPIROCIN 2% TOPICAL OINTMENT FOR DECOLONIZATION NS SCH ×2 (13:41→22:21)
--- NOTE | 2019-08-07 14:20 | EKG ---
Test Reason : Blood Pressure : / mmHG Vent. Rate : 067 BPM Atrial Rate : 067 BPM P-R Int : 140 ms QRS Dur : 088 ms QT Int : 434 ms P-R-T Axes : 055 050 015 degrees QTc Int : 458 ms NORMAL SINUS RHYTHM NONSPECIFIC T WAVE ABNORMALITY ABNORMAL ECG WHEN COMPARED WITH ECG OF 07-AUG-2019 01:55, NO SIGNIFICANT CHANGE WAS FOUND Confirmed by MARY ROBERSON MD ([id number]) on 08/07/2019 2:19:55 PM Referred By: ELHAM BECERRA DR Confirmed By:MARY ROBERSON MD
--- NOTE | 2019-08-07 14:26 | EKG ---
Test Reason : Blood Pressure : / mmHG Vent. Rate : 087 BPM Atrial Rate : 087 BPM P-R Int : 134 ms QRS Dur : 086 ms QT Int : 400 ms P-R-T Axes : 053 060 036 degrees QTc Int : 481 ms NORMAL SINUS RHYTHM NONSPECIFIC T WAVE ABNORMALITY PROLONGED QT ABNORMAL ECG WHEN COMPARED WITH ECG OF 06-AUG-2019 20:21, NONSPECIFIC T WAVE ABNORMALITY HAS REPLACED INVERTED T WAVES IN INFERIOR LEADS NONSPECIFIC T WAVE ABNORMALITY HAS REPLACED INVERTED T WAVES IN LATERAL LEADS Confirmed by MARY ROBERSON MD ([id number]) on 08/07/2019 2:26:23 PM Referred By: Confirmed By:MARY ROBERSON MD
--- NOTE | 2019-08-07 14:29 | EKG ---
Test Reason : Blood Pressure : / mmHG Vent. Rate : 106 BPM Atrial Rate : 106 BPM P-R Int : 146 ms QRS Dur : 090 ms QT Int : 346 ms P-R-T Axes : 057 071 -37 degrees QTc Int : 459 ms SINUS TACHYCARDIA T WAVE ABNORMALITY, CONSIDER INFERIOR ISCHEMIA T WAVE ABNORMALITY, CONSIDER ANTEROLATERAL ISCHEMIA ABNORMAL ECG NO PREVIOUS ECGS AVAILABLE Confirmed by MARY ROBERSON MD ([id number]) on 08/07/2019 2:29:33 PM Referred By: Confirmed By:MARY ROBERSON MD
[2019-08-07] MEDS ORDERED: CHLORHEXIDINE GLUCONATE 4% CLEANSER FOR DECOLONIZATION TP SCH (22:00)
[2019-08-07] MEDS: CHLORHEXIDINE GLUCONATE 4% CLEANSER FOR DECOLONIZATION TP SCH (22:20)
[2019-08-08] MEDS: HEPARIN - 25,000 UNIT in SODIUM CHLORIDE 495 ML IV SCH (01:45)
[2019-08-08 07:49] LABS: BASO % 0.6 % (0-2.0); HEMATOCRIT 44.7 % (35.4-49); LYMPH % 35.3 % (8-40); MCH 29.9 pg (25.7-33.7); MCHC 33.6 g/dl (32.0-35.9); MEAN CELL VOLUME 88.8 fl (80-96); MEAN PLT VOLUME 8.9 fl (7.5-11.1); MONO % 8.4 % (3.8-10.2); NEUT % 52.7 % (42.8-82.8); PLATELET COUNT 203 K/MM3 (134-434); RBC 5.03 M/mm3 (4.00-5.60); RDW 13.8 % (11.9-15.9); WHITE BLOOD COUNT 8.6 K/mm3 (4.0-10.0)
[2019-08-08] MEDS: HEPARIN NA (PORCINE) 5,000 UNITS/ML 1ML VIAL IVPUSH PRN ×2 (08:00→16:53)
[2019-08-08 08:18] LABS: BLOOD UREA NITROGEN 13.6 mg/dL (7-18); CALCIUM 8.5 mg/dL (8.5-10.1); CREATININE 1.2 mg/dL (0.55-1.3); PHOSPHOROUS 3.7 mg/dL (2.5-4.9); POTASSIUM 3.9 mmol/L (3.5-5.1)
[2019-08-08] MEDS ORDERED: ACETAMINOPHEN 325 MG TABLET (FP) PO PRN (08:48)
--- NOTE | 2019-08-08 09:54 | PN ---
Teaching Attending Note Name of Resident: Conrad Multani ATTENDING PHYSICIAN STATEMENT I saw and evaluated the patient. I reviewed the resident's note and discussed the case with the resident. I agree with the resident's findings and plan as documented. SUBJECTIVE: Patient seen and examined in the ICU. Awake and alert. Still with some intermittent mild left sided chest discomfort with deep breathing. No dizziness. Intake & Output 08/05/19 08/06/19 08/07/19 08/08/19 23:59 23:59 23:59 23:59 Intake Total 740 Balance 740 Weight 329 lb 12.8 oz 329 lb 12.8 oz Last Vital Signs Temp Pulse Resp BP Pulse Ox 97.3 F L 85 20 145/94 94 L 08/08/19 02:00 08/08/19 06:00 08/08/19 06:00 08/08/19 06:00 08/08/19 00:02 Active Medications Acetaminophen (Tylenol -) 650 mg PO Q6H PRN PRN Reason: Fever Or Pain Last Admin: 08/08/19 09:33 Dose: 650 mg Chlorhexidine Gluconate (Hibiclens For Decolonization -) 1 applic TP HS ALFONZO Last Admin: 08/07/19 22:20 Dose: 1 applic Heparin Sodium (Porcine) (Heparin -) 1,000 unit IVPUSH PRN PRN PRN Reason: Heparin Last Admin: 08/08/19 08:00 Dose: 1,000 unit Heparin Sodium (Porcine) (Heparin -) 5,000 unit IVPUSH PRN PRN PRN Reason: Heparin Heparin Sodium (Porcine) 25, (000 unit/ Sodium Chloride) 500 mls @ 20 mls/hr IV TITR ALFONZO; Protocol Last Titration: 08/08/19 08:45 Dose: 1,100 unit/hr, 22 mls/hr Mupirocin (Bactroban Ointment (For Decolonization) -) 1 applic NS BID ALFONZO Stop: 08/12/19 09:59 Last Admin: 08/07/19 22:21 Dose: 1 applic GENERAL: Awake, alert, and oriented, NAD. HEAD: Normal with no signs of trauma. EYES: Pupils equal, round and reactive to light, extraocular movements intact, sclera anicteric, conjunctiva clear. No lid lag. EARS, NOSE, THROAT: Ears normal, nares patent, oropharynx clear without exudates. Moist mucous membranes. NECK: Normal range of motion, supple LUNGS: CTA b/l. restricted inspiratory effort. HEART: tachycardic rate and rhythm, normal S1 and S2 without murmur, rub or gallop. ABDOMEN: Soft, obese, nontender, not distended, normoactive bowel sounds LOWER EXTREMITIES: 2+ pt pulses, warm, well-perfused. No calf tenderness. No peripheral edema. NEUROLOGICAL: Non-focal Laboratory Results - last 24 hr 08/08/19 08/08/19 08/08/19 05:33 05:33 05:33 WBC 8.6 RBC 5.03 Hgb 15.0 Hct 44.7 MCV 88.8 MCH 29.9 MCHC 33.6 RDW 13.8 Plt Count 203 MPV 8.9 Absolute Neuts (auto) 4.5 Neutrophils % 52.7 D Lymphocytes % 35.3 Monocytes % 8.4 Eosinophils % 3.0 Basophils % 0.6 Nucleated RBC % 0 PTT (Actin FS) 41.5 H Sodium 139 Potassium 3.9 Chloride 106 Carbon Dioxide 25 Anion Gap 9 BUN 13.6 Creatinine 1.2 Est GFR (CKD-EPI)AfAm 85.32 Est GFR (CKD-EPI)NonAf 73.62 Random Glucose 113 H Calcium 8.5 Phosphorus 3.7 Magnesium 2.0 IMP: Acute embolus distal Right pulmonary artery with extension into Right lower lobar artery (?) provoked Submassive PE: evidence of Right ventricular strain on CT imaging Suspected OSAS Morbid Obesity AC with Heparin per protocol D/W IR: Repeat ECHO on Saturday to assess for Right heart strain and the need for IR VTE intervention O2 as needed Will need hypercoaguable work up Cardiac Telemetry monitoring Dr Gonzalez
[2019-08-08] MEDS: MUPIROCIN 2% TOPICAL OINTMENT FOR DECOLONIZATION NS SCH ×2 (10:00→21:13)
--- NOTE | 2019-08-08 10:53 | CONSULT ---
Consultation: REQUESTING PROVIDER: CONSULT REQUEST: We have been asked to medically evaluate this patient for ( specify). HISTORY OF PRESENT ILLNESS: REVIEW OF SYSTEMS: CONSTITUTIONAL: Absent: fever, chills, diaphoresis, generalized weakness, malaise, loss of appetite, weight change HEENT: Absent: rhinorrhea, nasal congestion, throat pain, throat swelling, difficulty swallowing, mouth swelling, ear pain, eye pain, visual changes CARDIOVASCULAR: Absent: chest pain, syncope, palpitations, irregular heart rate, lightheadedness , peripheral edema RESPIRATORY: Absent: cough, shortness of breath, dyspnea with exertion, orthopnea, wheezing, stridor, hemoptysis GASTROINTESTINAL: Absent: abdominal pain, abdominal distension, nausea, vomiting, diarrhea, constipation, melena, hematochezia GENITOURINARY: Absent: dysuria, frequency, urgency, hesitancy, hematuria, flank pain, genital pain MUSCULOSKELETAL: Absent: myalgia, arthralgia, joint swelling, back pain, neck pain SKIN: Absent: rash, itching, pallor HEMATOLOGIC/IMMUNOLOGIC: Absent: easy bleeding, easy bruising, lymphadenopathy, frequent infections ENDOCRINE: Absent: unexplained weight gain, unexplained weight loss, heat intolerance, cold intolerance NEUROLOGIC: Absent: headache, focal weakness or paresthesias, dizziness, unsteady gait, seizure, mental status changes, bladder or bowel incontinence PSYCHIATRIC: Absent: anxiety, depression, suicidal or homicidal ideation, hallucinations. PHYSICAL EXAMINATION Vital Signs - 24 hr 08/07/19 08/07/19 08/07/19 12:00 14:00 16:00 Temperature 97.8 F Pulse Rate 76 82 82 Respiratory 17 23 H 20 Rate Blood Pressure 146/114 H 141/84 131/84 O2 Sat by Pulse Oximetry (%) 08/07/19 08/07/19 08/07/19 18:00 19:06 19:07 Temperature Pulse Rate 92 H 95 H Respiratory 18 25 H Rate Blood Pressure 155/96 155/96 O2 Sat by Pulse Oximetry (%) 08/07/19 08/07/19 08/07/19 20:00 21:00 22:00 Temperature 98.4 F Pulse Rate 93 H 90 83 Respiratory 23 H 28 H 18 Rate Blood Pressure 131/88 147/91 167/123 H O2 Sat by Pulse Oximetry (%) 08/07/19 08/08/19 08/08/19 23:00 00:00 00:02 Temperature Pulse Rate 79 73 Respiratory 22 H 20 18 Rate Blood Pressure 151/109 H 121/83 O2 Sat by Pulse 94 L Oximetry (%) 08/08/19 08/08/19 08/08/19 01:00 02:00 03:00 Temperature 97.3 F L Pulse Rate 75 75 67 Respiratory 22 H 21 H 22 H Rate Blood Pressure 117/86 122/86 120/81 O2 Sat by Pulse Oximetry (%) 08/08/19 08/08/19 08/08/19 04:00 05:00 06:00 Temperature Pulse Rate 71 77 85 Respiratory 22 H 17 20 Rate Blood Pressure 123/68 130/87 145/94 O2 Sat by Pulse Oximetry (%) 08/08/19 08/08/19 08/08/19 08:00 09:00 10:00 Temperature 97.4 F L Pulse Rate 68 89 Respiratory 14 22 H 22 H Rate Blood Pressure 129/70 137/81 O2 Sat by Pulse 94 L Oximetry (%) GENERAL: Awake, alert, and fully oriented, in no acute distress. HEAD: Normal with no signs of trauma. EYES: Pupils equal, round and reactive to light, extraocular movements intact, sclera anicteric, conjunctiva clear. No lid lag. EARS, NOSE, THROAT: Ears normal, nares patent, oropharynx clear without exudates. Moist mucous membranes. NECK: Normal range of motion, supple without lymphadenopathy, JVD, or masses. LUNGS: Breath sounds equal, clear to auscultation bilaterally. No wheezes, and no crackles. No accessory muscle use. HEART: Regular rate and rhythm, normal S1 and S2 without murmur, rub or gallop. ABDOMEN: Soft, nontender, not distended, normoactive bowel sounds, no guarding, no rebound, no masses. No hepatomegaly or splenomegaly. MUSCULOSKELETAL: Normal range of motion at all joints. No bony deformities or tenderness. No CVA tenderness. UPPER EXTREMITIES: 2+ pulses, warm, well-perfused. No cyanosis. No clubbing. Cap refill <2 seconds. No peripheral edema. LOWER EXTREMITIES: 2+ pulses, warm, well-perfused. No calf tenderness. No peripheral edema. NEUROLOGICAL: Cranial nerves II-XII intact. Normal speech. Normal gait. PSYCHIATRIC: Cooperative. Good eye contact. Appropriate mood and affect. SKIN: Warm, dry, normal turgor, no rashes or lesions noted. Laboratory Results - last 24 hr 08/08/19 08/08/19 08/08/19 05:33 05:33 05:33 WBC 8.6 RBC 5.03 Hgb 15.0 Hct 44.7 MCV 88.8 MCH 29.9 MCHC 33.6 RDW 13.8 Plt Count 203 MPV 8.9 Absolute Neuts (auto) 4.5 Neutrophils % 52.7 D Lymphocytes % 35.3 Monocytes % 8.4 Eosinophils % 3.0 Basophils % 0.6 Nucleated RBC % 0 PTT (Actin FS) 41.5 H Sodium 139 Potassium 3.9 Chloride 106 Carbon Dioxide 25 Anion Gap 9 BUN 13.6 Creatinine 1.2 Est GFR (CKD-EPI)AfAm 85.32 Est GFR (CKD-EPI)NonAf 73.62 Random Glucose 113 H Calcium 8.5 Phosphorus 3.7 Magnesium 2.0 Active Medications Generic Name Dose Route Start Last Admin Trade Name Freq PRN Reason Stop Dose Admin Acetaminophen 650 mg 08/08/19 08:48 08/08/19 09:33 Tylenol - PO 650 mg Q6H PRN Administration Fever Or Pain Chlorhexidine Gluconate 1 applic 08/07/19 22:00 08/07/19 22:20 Hibiclens For Decolonization - TP 1 applic HS ALFONZO Administration Heparin Sodium (Porcine) 1,000 unit 08/06/19 23:17 08/08/19 08:00 Heparin - IVPUSH 1,000 unit PRN PRN Administration Heparin Heparin Sodium (Porcine) 5,000 unit 08/06/19 23:17 Heparin - IVPUSH PRN PRN Heparin Heparin Sodium (Porcine) 25, 500 mls @ 20 mls/hr 08/06/19 23:30 08/08/19 08: 45 000 unit/ Sodium Chloride IV 1,100 unit/hr TITR ALFONZO 22 mls/hr Titration Protocol 1,000 UNIT/HR Mupirocin 1 applic 08/07/19 10:00 08/07/19 22:21 Bactroban Ointment (For Decolonization) - NS 08/12/19 09:59 1 applic BID ALFONZO Administration CBC, BMP 08/08/19 05:33 08/08/19 05:33 ASSESSMENT/PLAN: Dispo: We will continue to follow the patient. Thank you for this consultative opportunity. ATTENDING PHYSICIAN STATEMENT I saw and evaluated the patient. I reviewed the resident's note and discussed the case with the resident. I agree with the resident's findings and plan as documented. SUBJECTIVE: OBJECTIVE: ASSESSMENT AND PLAN:
--- NOTE | 2019-08-08 11:14 | PN ---
Physical Exam: SUBJECTIVE: Patient seen and examined at bed side , no acute events over night still on Hep drip, reports some chest tightness with deep inspiration. no headache no blurry vision. OBJECTIVE: Vital Signs Period Temp Pulse Resp BP Sys/Mo Pulse Ox Last 24 Hr 97.3 F-98.4 F 67-95 14-28 117-167/68-123 94-94 GENERAL: AAOx3 in NAD , on 4 L NC HEAD: NC/AT EYES: EOMI, Conjunctiva clear, sclera anicteric ENT: moist mucous membrane NECK: Supple, no JVD LUNGS: CTA B/L, no crackles no wheezing no accessory muscle use. HEART: RRR, NSR, normal s1, s2, murmur no M/R/G ABDOMEN: Obese Soft, ND, NT, +BS 4 Q, no CVA Tenderness LOWER EXTREMITIES: no edema, +2DP pulse, NEUROLOGICAL: No focal deficit. Normal speech. gait not observed. PSYCHIATRIC: Cooperative. Good eye contact. Appropriate mood and affect. SKIN: Warm, dry, Laboratory Results - last 24 hr 08/08/19 08/08/19 08/08/19 05:33 05:33 05:33 WBC 8.6 RBC 5.03 Hgb 15.0 Hct 44.7 MCV 88.8 MCH 29.9 MCHC 33.6 RDW 13.8 Plt Count 203 MPV 8.9 Absolute Neuts (auto) 4.5 Neutrophils % 52.7 D Lymphocytes % 35.3 Monocytes % 8.4 Eosinophils % 3.0 Basophils % 0.6 Nucleated RBC % 0 PTT (Actin FS) 41.5 H Sodium 139 Potassium 3.9 Chloride 106 Carbon Dioxide 25 Anion Gap 9 BUN 13.6 Creatinine 1.2 Est GFR (CKD-EPI)AfAm 85.32 Est GFR (CKD-EPI)NonAf 73.62 Random Glucose 113 H Calcium 8.5 Phosphorus 3.7 Magnesium 2.0 Active Medications Generic Name Dose Route Start Last Admin Trade Name Freq PRN Reason Stop Dose Admin Acetaminophen 650 mg 08/08/19 08:48 08/08/19 09:33 Tylenol - PO 650 mg Q6H PRN Administration Fever Or Pain Chlorhexidine Gluconate 1 applic 08/07/19 22:00 08/07/19 22:20 Hibiclens For Decolonization - TP 1 applic HS ALFONZO Administration Heparin Sodium (Porcine) 1,000 unit 08/06/19 23:17 08/08/19 08:00 Heparin - IVPUSH 1,000 unit PRN PRN Administration Heparin Heparin Sodium (Porcine) 5,000 unit 08/06/19 23:17 Heparin - IVPUSH PRN PRN Heparin Heparin Sodium (Porcine) 25, 500 mls @ 20 mls/hr 08/06/19 23:30 08/08/19 08: 45 000 unit/ Sodium Chloride IV 1,100 unit/hr TITR ALFONZO 22 mls/hr Titration Protocol 1,000 UNIT/HR Mupirocin 1 applic 08/07/19 10:00 08/07/19 22:21 Bactroban Ointment (For Decolonization) - NS 08/12/19 09:59 1 applic BID ALFONZO Administration CBC, BMP 08/08/19 05:33 08/08/19 05:33 ASSESSMENT/PLAN: 43 y/o M with PMH morbid obesity, gout, lumbar herniated disc, who presented for sudden SOB that occurred this AM. CTA revealed prominent acute embolus in distal aspect of R pulm artery, extending into R lower lobar artery. Also with saddle embolus along bifurcation of the main pulm a. trunk. ICU consulted for saddle PE and concern of potential decompensation/ development of obstructive shock. #Neuro -AAO x 3, neuro intact #Pulm +acute embolus distal R pulm artery, extending into R lower lobar artery +saddle PE -wells for PE: score 1.5. low risk . pt w/ gout can be risk fx per some studies -risk fx: morbid obesity, recent trip Sat -w/submassive PE, currently hemodynamically stable -c/w NC O2 as needed to maintain sat -started on hep gtt. discussed risks and benefits w/ pt of a/c. agreed with plan. no contra-indications. -ECHO 08/07 morning shows mild RV dilation and grossly normal RV systolic function. w/ troponins 0.14. c/t trend -will need hypercoaguability w/u as out pt -f/u duplex LE check for DVT -IR deferred today, rpt echo Saturday #F/E/N * not requiring IVF at this time * continue to follow lytes * reg diet DVTPPX: hep gtt Dispo: can be monitored in Tele Visit type - Emergency Visit Emergency Visit: Yes ED Registration Date: 08/06/19 Care time: The patient presented to the Emergency Department on the above date and was hospitalized for further evaluation of their emergent condition. - New Patient This patient is new to me today: Yes Date on this admission: 08/08/19 - Critical Care Critical Care patient: Yes Total Critical Care Time (in minutes): 45 Critical Care Statement: The care of this patient involved high complexity decision making to prevent further life threatening deterioration of the patient 's condition and/or to evaluate & treat vital organ system(s) failure or risk of failure. ATTENDING PHYSICIAN STATEMENT I saw and evaluated the patient. I reviewed the resident's note and discussed the case with the resident. I agree with the resident's findings and plan as documented. SUBJECTIVE: OBJECTIVE: ASSESSMENT AND PLAN:
--- NOTE | 2019-08-08 19:26 | PN ---
Progress Note (short form) - Note Progress Note: patient seen and examined in ICU in bed no O2 sat 98% has been able to ambulate in room some chest discomfort but no pain / diaphoresis / or significant dyspnea Vital Signs Period Temp Pulse Resp BP Sys/Mo Pulse Ox Last 24 Hr 97.3 F-98.4 F 67-100 14-28 117-167/68-123 94-100 obese male / comfortable neckk supple heart S1/S2 reg lung clear bilat abd obese / soft ext no calf tenderness no edema Active Medications Acetaminophen (Tylenol -) 650 mg PO Q6H PRN PRN Reason: Fever Or Pain Last Admin: 08/08/19 09:33 Dose: 650 mg Chlorhexidine Gluconate (Hibiclens For Decolonization -) 1 applic TP HS ALFONZO Last Admin: 08/07/19 22:20 Dose: 1 applic Heparin Sodium (Porcine) (Heparin -) 1,000 unit IVPUSH PRN PRN PRN Reason: Heparin Last Admin: 08/08/19 16:53 Dose: 1,000 unit Heparin Sodium (Porcine) (Heparin -) 5,000 unit IVPUSH PRN PRN PRN Reason: Heparin Heparin Sodium (Porcine) 25, (000 unit/ Sodium Chloride) 500 mls @ 20 mls/hr IV TITR ALFONZO; Protocol Last Titration: 08/08/19 16:53 Dose: 1,200 unit/hr, 24 mls/hr Mupirocin (Bactroban Ointment (For Decolonization) -) 1 applic NS BID ALFONZO Stop: 08/12/19 09:59 Last Admin: 08/08/19 10:00 Dose: 1 applic ASSMT / PLAN 43 y/o M with PMH morbid obesity, gout, lumbar herniated disc, who presented for sudden SOB that occurred this AM. CTA revealed prominent acute embolus in distal aspect of R pulm artery, extending into R lower lobar artery. Also with saddle embolus along bifurcation of the main pulm a. trunk. ICU consulted for saddle PE and concern of potential decompensation/ development of obstructive shock. #Neuro -AAO x 3, neuro intact #Pulm +acute embolus distal R pulm artery, extending into R lower lobar artery +saddle PE -wells for PE: score 1.5. low risk . pt w/ gout can be risk fx per some studies -risk fx: morbid obesity, recent trip Sat -w/submassive PE, currently hemodynamically stable -c/w NC O2 as needed to maintain sat -started on hep gtt. discussed risks and benefits w/ pt of a/c. agreed with plan. no contra-indications. -ECHO 08/07 morning shows mild RV dilation and grossly normal RV systolic function. w/ troponins 0.14. c/t trend -will need hypercoaguability w/u -f/u duplex LE check for DVT -IR deferred today, rpt echo Saturday
[2019-08-08] MEDS: CHLORHEXIDINE GLUCONATE 4% CLEANSER FOR DECOLONIZATION TP SCH (21:13)
[2019-08-09] MEDS: HEPARIN NA (PORCINE) 5,000 UNITS/ML 1ML VIAL IVPUSH PRN (01:30)
[2019-08-09] MEDS: HEPARIN - 25,000 UNIT in SODIUM CHLORIDE 495 ML IV SCH ×2 (01:30→17:36)
[2019-08-09 07:54] LABS: BASO % 0.3 % (0-2.0); EOS % 3.1 % (0-4.5); HEMATOCRIT 45.1 % (35.4-49); HEMOGLOBIN 14.8 GM/dL (11.7-16.9); LYMPH % 36.3 % (8-40); MCH 29.5 pg (25.7-33.7); MCHC 32.9 g/dl (32.0-35.9); MEAN CELL VOLUME 89.6 fl (80-96); MEAN PLT VOLUME 8.3 fl (7.5-11.1); MONO % 8.6 % (3.8-10.2); NEUT % 51.7 % (42.8-82.8); PLATELET COUNT 205 K/MM3 (134-434); RBC 5.03 M/mm3 (4.00-5.60); RDW 14.4 % (11.9-15.9); WHITE BLOOD COUNT 6.9 K/mm3 (4.0-10.0)
[2019-08-09 08:33] LABS: ALBUMIN 3.4 g/dl (3.4-5.0); BILIRUBIN,TOTAL 0.4 mg/dL (0.2-1); BLOOD UREA NITROGEN 11.8 mg/dL (7-18); CALCIUM 8.7 mg/dL (8.5-10.1); CREATININE 1.1 mg/dL (0.55-1.3); MAGNESIUM 2.1 mg/dL (1.8-2.4); PHOSPHOROUS 3.4 mg/dL (2.5-4.9); POTASSIUM 4.4 mmol/L (3.5-5.1); TOT PROT 7.4 g/dl (6.4-8.2)
[2019-08-09] MEDS: MUPIROCIN 2% TOPICAL OINTMENT FOR DECOLONIZATION NS SCH ×2 (09:11→22:04)
--- NOTE | 2019-08-09 09:44 | PN ---
Teaching Attending Note Name of Resident: Argenis England ATTENDING PHYSICIAN STATEMENT I saw and evaluated the patient. I reviewed the resident's note and discussed the case with the resident. I agree with the resident's findings and plan as documented. SUBJECTIVE: Patient seen and examined in the ICU. Awake and alert. Still with some intermittent mild left sided chest discomfort with deep breathing. No dizziness. Intake & Output 08/06/19 08/07/19 08/08/19 08/09/19 23:59 23:59 23:59 23:59 Intake Total 740 240 312 Balance 740 240 312 Weight 329 lb 12.8 oz 329 lb 12.8 oz 329 lb 328 lb 0.765 oz Last Vital Signs Temp Pulse Resp BP Pulse Ox 99.7 F H 95 H 20 90/69 99 08/09/19 02:00 08/09/19 06:00 08/09/19 06:00 08/09/19 06:00 08/09/19 09:00 Active Medications Acetaminophen (Tylenol -) 650 mg PO Q6H PRN PRN Reason: Fever Or Pain Last Admin: 08/08/19 09:33 Dose: 650 mg Chlorhexidine Gluconate (Hibiclens For Decolonization -) 1 applic TP HS ALFONZO Last Admin: 08/08/19 21:13 Dose: 1 applic Heparin Sodium (Porcine) (Heparin -) 1,000 unit IVPUSH PRN PRN PRN Reason: Heparin Last Admin: 08/09/19 01:30 Dose: 1,000 unit Heparin Sodium (Porcine) (Heparin -) 5,000 unit IVPUSH PRN PRN PRN Reason: Heparin Heparin Sodium (Porcine) 25, (000 unit/ Sodium Chloride) 500 mls @ 20 mls/hr IV TITR ALFONZO; Protocol Last Admin: 08/09/19 01:30 Dose: 1,300 unit/hr, 26 mls/hr Mupirocin (Bactroban Ointment (For Decolonization) -) 1 applic NS BID ALFONZO Stop: 08/12/19 09:59 Last Admin: 08/09/19 09:11 Dose: 1 applic GENERAL: Awake, alert, and oriented, NAD. HEAD: Normal with no signs of trauma. EYES: Pupils equal, round and reactive to light, extraocular movements intact, sclera anicteric, conjunctiva clear. No lid lag. EARS, NOSE, THROAT: Ears normal, nares patent, oropharynx clear without exudates. Moist mucous membranes. NECK: Normal range of motion, supple LUNGS: CTA b/l. restricted inspiratory effort. HEART: tachycardic rate and rhythm, normal S1 and S2 without murmur, rub or gallop. ABDOMEN: Soft, obese, nontender, not distended, normoactive bowel sounds LOWER EXTREMITIES: 2+ pt pulses, warm, well-perfused. No calf tenderness. No peripheral edema. NEUROLOGICAL: Non-focal Laboratory Results - last 24 hr 08/08/19 08/09/19 08/09/19 15:10 00:27 07:24 WBC RBC Hgb Hct MCV MCH MCHC RDW Plt Count MPV Absolute Neuts (auto) Neutrophils % Lymphocytes % Monocytes % Eosinophils % Basophils % Nucleated RBC % PTT (Actin FS) 40.7 H 41.2 H 61.5 H Sodium Potassium Chloride Carbon Dioxide Anion Gap BUN Creatinine Est GFR (CKD-EPI)AfAm Est GFR (CKD-EPI)NonAf Random Glucose Calcium Phosphorus Magnesium Total Bilirubin AST ALT Alkaline Phosphatase Total Protein Albumin 08/09/19 08/09/19 07:24 07:24 WBC 6.9 RBC 5.03 Hgb 14.8 Hct 45.1 MCV 89.6 MCH 29.5 MCHC 32.9 RDW 14.4 Plt Count 205 MPV 8.3 Absolute Neuts (auto) 3.5 Neutrophils % 51.7 Lymphocytes % 36.3 Monocytes % 8.6 Eosinophils % 3.1 Basophils % 0.3 Nucleated RBC % 0 PTT (Actin FS) Sodium 141 Potassium 4.4 Chloride 107 Carbon Dioxide 30 Anion Gap 4 L BUN 11.8 Creatinine 1.1 Est GFR (CKD-EPI)AfAm 94.79 Est GFR (CKD-EPI)NonAf 81.78 Random Glucose 109 H Calcium 8.7 Phosphorus 3.4 Magnesium 2.1 Total Bilirubin 0.4 AST 31 ALT 51 Alkaline Phosphatase 70 Total Protein 7.4 Albumin 3.4 IMP: Acute embolus distal Right pulmonary artery with extension into Right lower lobar artery (?) provoked Submassive PE: evidence of Right ventricular strain on CT imaging Suspected OSAS Morbid Obesity AC with Heparin per protocol D/W IR: Repeat ECHO on Saturday to assess for Right heart strain and the need for IR VTE intervention O2 as needed Will need hypercoaguable work up Cardiac Telemetry monitoring Dr Gonzalez
--- NOTE | 2019-08-09 10:28 | PN ---
Physical Exam: SUBJECTIVE: Patient seen and examined at bedside. States that he feels mild chest pressure when he sleeps. Otherwise without complaint. OBJECTIVE: Vital Signs Period Temp Pulse Resp BP Sys/Mo Pulse Ox Last 24 Hr 97.4 F-101.3 F 73-134 17-25 70-153/57-101 98-100 GENERAL: resting comfortably, in NAD HEENT: NCAT Neck: supple Cardio: S1, S2 RRR. no r/m/g Pulm: CTA b/l. +decreased inspiratory effort. no accessory m usage Abdomen: obese, nontender, nondistended LE: 2+ pt pulses, no edema Laboratory Results 08/09/19 08/09/19 07:24 07:24 PTT (Actin FS) 61.5 H Sodium 141 Potassium 4.4 Anion Gap 4 L BUN 11.8 Creatinine 1.1 Random Glucose 109 H ASSESSMENT/PLAN: 43 y/o M with PMH morbid obesity, gout, lumbar herniated disc, who presented for sudden SOB that occurred this AM. CTA revealed prominent acute embolus in distal aspect of R pulm artery, extending into R lower lobar artery. Also with saddle embolus along bifurcation of the main pulm a. trunk. ICU consulted for saddle PE and concern of potential decompensation/ development of obstructive shock. #Neuro -AAO x 3, neuro intact #Pulm +acute embolus distal R pulm artery, extending into R lower lobar artery +saddle PE -submassive PE, currently hemodynamically stable -c/w NC 02 as needed to maintain sat -c/w hep gtt -f/u repeat ECHO (tomorrow) to check if development of RH strain. if no heart strain will likely be able to start on PO a/c. If RH strain, may need IR intervention -will need hypercoaguability w/u #F/E/N not requiring IVF at this time continue to follow lytes reg diet #PPX on hep gtt #Dispo monitoring in ICU; but for transfer to tele for pulse ox monitoring. transfer still pending - no beds Dispo: We will continue to follow the patient. Thank you for this consultative opportunity. Visit type - Emergency Visit Emergency Visit: No - New Patient This patient is new to me today: No - Critical Care Critical Care patient: Yes Total Critical Care Time (in minutes): 45 Critical Care Statement: The care of this patient involved high complexity decision making to prevent further life threatening deterioration of the patient 's condition and/or to evaluate & treat vital organ system(s) failure or risk of failure.
[2019-08-09] MEDS ORDERED: PT OWN MED DRAWER 7, Y5N ONE (16:58)
--- NOTE | 2019-08-09 17:10 | PN ---
Progress Note (short form) - Note Progress Note: patient seen and examined in ICU at bedside in bed no O2 sat 98% has been able to ambulate in room some chest discomfort but no pain / diaphoresis / or significant dyspnea Vital Signs Period Temp Pulse Resp BP Sys/Mo Pulse Ox Last 24 Hr 97.3 F-98.4 F 67-100 14-28 117-167/68-123 94-100 obese male / comfortable neck supple heart S1/S2 reg lung clear bilat abd obese / soft ext no calf tenderness no edema CBC, BMP 08/09/19 07:24 08/09/19 07:24 Active Medications Acetaminophen (Tylenol -) 650 mg PO Q6H PRN PRN Reason: Fever Or Pain Last Admin: 08/08/19 09:33 Dose: 650 mg Chlorhexidine Gluconate (Hibiclens For Decolonization -) 1 applic TP HS ALFONZO Last Admin: 08/07/19 22:20 Dose: 1 applic Heparin Sodium (Porcine) (Heparin -) 1,000 unit IVPUSH PRN PRN PRN Reason: Heparin Last Admin: 08/08/19 16:53 Dose: 1,000 unit Heparin Sodium (Porcine) (Heparin -) 5,000 unit IVPUSH PRN PRN PRN Reason: Heparin Heparin Sodium (Porcine) 25, (000 unit/ Sodium Chloride) 500 mls @ 20 mls/hr IV TITR ALFONZO; Protocol Last Titration: 08/08/19 16:53 Dose: 1,200 unit/hr, 24 mls/hr Mupirocin (Bactroban Ointment (For Decolonization) -) 1 applic NS BID ALFONZO Stop: 08/12/19 09:59 Last Admin: 08/08/19 10:00 Dose: 1 applic ASSMT / PLAN 43 y/o M with PMH morbid obesity, gout, lumbar herniated disc, who presented for sudden SOB that occurred this AM. CTA revealed prominent acute embolus in distal aspect of R pulm artery, extending into R lower lobar artery. Also with saddle embolus along bifurcation of the main pulm a. trunk. ICU consulted for saddle PE and concern of potential decompensation/ development of obstructive shock. #Neuro -AAO x 3, neuro intact #Pulm +acute embolus distal R pulm artery, extending into R lower lobar artery +saddle PE -wells for PE: score 1.5. low risk . pt w/ gout can be risk fx per some studies -risk fx: morbid obesity, recent trip Sat -w/submassive PE, currently hemodynamically stable -c/w NC O2 as needed to maintain sat -started on hep gtt. discussed risks and benefits w/ pt of a/c. agreed with plan. no contra-indications. -ECHO 08/07 morning shows mild RV dilation and grossly normal RV systolic function. w/ troponins 0.14. c/t trend -will need hypercoaguability w/u -f/u duplex LE check for DVT -IR deferred consult on 08/07/19 , requested rpt echo Saturday
[2019-08-09] MEDS ORDERED: POLYETHYLENE GLYCOL 3350 119 GM BTL PO SCH (22:00)
[2019-08-09] MEDS: CHLORHEXIDINE GLUCONATE 4% CLEANSER FOR DECOLONIZATION TP SCH (22:04)
[2019-08-10] MEDS: HEPARIN - 25,000 UNIT in SODIUM CHLORIDE 495 ML IV SCH ×2 (00:55→15:00)
[2019-08-10 06:56] LABS: HEMATOCRIT 44.8 % (35.4-49); HEMOGLOBIN 14.4 GM/dL (11.7-16.9); MCH 29.1 pg (25.7-33.7); MCHC 32.2 g/dl (32.0-35.9); MEAN CELL VOLUME 90.4 fl (80-96); MEAN PLT VOLUME 8.5 fl (7.5-11.1); PLATELET COUNT 196 K/MM3 (134-434); RBC 4.96 M/mm3 (4.00-5.60); RDW 14.4 % (11.9-15.9); WHITE BLOOD COUNT 8.6 K/mm3 (4.0-10.0)
[2019-08-10 07:31] LABS: PHOSPHOROUS 3.4 mg/dL (2.5-4.9)
[2019-08-10] MEDS: HEPARIN NA (PORCINE) 5,000 UNITS/ML 1ML VIAL IVPUSH PRN (08:27)
[2019-08-10] MEDS ORDERED: HEPARIN NA (PORCINE) 5,000 UNITS/ML 1ML VIAL IVPUSH PRN ×8 (11:05→13:24)
[2019-08-10] MEDS ORDERED: HEPARIN - 25,000 UNIT in SODIUM CHLORIDE 495 ML IV SCH (11:05)
[2019-08-10] MEDS ORDERED: ACETAMINOPHEN 325 MG TABLET (FP) PO PRN ×2 (11:05→13:24)
--- NOTE | 2019-08-10 12:23 | ECHO ---
Name: PATSY LOPEZ Exam:Adult Echocardiogram Study Date: 08/10/2019 07:50 AM Age: 43 yrs Reason For Study: Pericardial Effusion only Height: 69 in Weight: 329 lb BSA: 2.6 m2 Procedure A limited two-dimensional transthoracic echocardiogram was performed (2D). Pericardium/Pleura There is no pericardial effusion. Interpretation Summary A limited two-dimensional transthoracic echocardiogram was performed (2D). There is no pericardial effusion. Lalo Sal MD 08/10/2019 12:23 PM
[2019-08-10 12:29] LABS: HEMATOCRIT 45.9 % (35.4-49); HEMOGLOBIN 14.9 GM/dL (11.7-16.9); MCH 29.2 pg (25.7-33.7); MCHC 32.5 g/dl (32.0-35.9); MEAN CELL VOLUME 89.8 fl (80-96); MEAN PLT VOLUME 8.5 fl (7.5-11.1); PLATELET COUNT 216 K/MM3 (134-434); RDW 14.2 % (11.9-15.9); WHITE BLOOD COUNT 8.4 K/mm3 (4.0-10.0)
--- NOTE | 2019-08-10 12:40 | PN ---
Teaching Attending Note Name of Resident: Destin Potter ATTENDING PHYSICIAN STATEMENT I saw and evaluated the patient. I reviewed the resident's note and discussed the case with the resident. I agree with the resident's findings and plan as documented. SUBJECTIVE: Pt seen and examined in the ICU. Still some chest tightness but breathing is better. Remains hemodynamically stable, saturating well on room air. OBJECTIVE: Vital Signs Period Temp Pulse Resp BP Sys/Mo Pulse Ox Last 24 Hr 97.8 F-98.5 F 70-106 18-22 113-145/71-109 98-99 Intake & Output 08/07/19 08/08/19 08/09/19 08/10/19 23:59 23:59 23:59 23:59 Intake Total 192 313 2779 732 Balance 224 649 4034 732 Weight 149.595 kg 149.232 kg 148.8 kg 148.778 kg Gen: NAD at rest Heart: RRR Lung: decreased breath sounds at the bases Abd: soft, nontender Ext: no edema CBC, BMP 08/10/19 12:15 08/09/19 07:24 Active Medications Acetaminophen (Tylenol -) 650 mg PO Q6H PRN PRN Reason: Fever Or Pain Heparin Sodium (Porcine) (Heparin -) 1,000 unit IVPUSH PRN PRN PRN Reason: Heparin Heparin Sodium (Porcine) (Heparin -) 5,000 unit IVPUSH PRN PRN PRN Reason: Heparin Heparin Sodium (Porcine) 25, (000 unit/ Sodium Chloride) 500 mls @ 20 mls/hr IV TITR ALFONZO; Protocol Polyethylene Glycol (Miralax (For Daily Use) -) 17 gm PO BID ALFONZO Last Admin: 08/09/19 22:06 Dose: Not Given ASSESSMENT AND PLAN: Acute Pulmonary Emboli Morbid Obesity Likely Obstructive Sleep Apnea - continue anticoagulation - f/u repeat echocardiogram - if no intervention planned, can start oral anticoagulation - O2 to keep Spo2 >90% - outpt NPSG - can monitor on floor if no intervention planned
[2019-08-10] MEDS ORDERED: PT OWN MED DRAWER 7, Y5N ONE ×2 (13:46→14:11)
--- NOTE | 2019-08-10 14:43 | PN ---
Physical Exam: SUBJECTIVE: Patient seen and examined at bedside in the ICU. Reports mild chest discomfort, but no shortness of breath. OBJECTIVE: Vital Signs Period Temp Pulse Resp BP Sys/Mo Pulse Ox Last 24 Hr 98 F-98.5 F 70-106 18-22 107-145/71-109 98-99 GENERAL: The patient is awake, alert, and fully oriented, in no acute distress. HEAD: Normal with no signs of trauma. EYES: PERRL, extraocular movements intact, sclera anicteric, conjunctiva clear. No ptosis. ENT: Ears normal, nares patent, oropharynx clear without exudates, moist mucous membranes. NECK: Trachea midline, full range of motion, supple. LUNGS: Breath sounds equal, clear to auscultation bilaterally, no wheezes, no crackles, no accessory muscle use. HEART: Regular rate and rhythm, S1, S2 without murmur, rub or gallop. ABDOMEN: Soft, obese, nontender, nondistended, normoactive bowel sounds, no guarding, no rebound, no hepatosplenomegaly, no masses. EXTREMITIES: 2+ pulses, warm, well-perfused, no edema. NEUROLOGICAL: Cranial nerves II through XII grossly intact. Normal speech, gait not observed. PSYCH: Normal mood, normal affect. SKIN: Warm, dry, normal turgor, no rashes or lesions noted Laboratory Results - last 24 hr 08/10/19 08/10/19 08/10/19 06:20 06:25 06:25 WBC 8.6 RBC 4.96 Hgb 14.4 Hct 44.8 MCV 90.4 MCH 29.1 MCHC 32.2 RDW 14.4 Plt Count 196 MPV 8.5 PTT (Actin FS) 48.7 H Phosphorus 3.4 Magnesium 2.0 08/10/19 08/10/19 12:15 12:15 WBC 8.4 RBC 5.10 Hgb 14.9 Hct 45.9 MCV 89.8 MCH 29.2 MCHC 32.5 RDW 14.2 Plt Count 216 MPV 8.5 PTT (Actin FS) 54.3 H Phosphorus Magnesium Active Medications Generic Name Dose Route Start Last Admin Trade Name Freq PRN Reason Stop Dose Admin Acetaminophen 650 mg 08/10/19 13:24 Tylenol - PO Q6H PRN Fever Or Pain Apixaban 10 mg 08/10/19 22:00 Eliquis - PO 08/17/19 22:00 BID [facility] Apixaban 5 mg 08/18/19 10:00 Eliquis - PO 08/25/19 22:00 BID [facility] Heparin Sodium (Porcine) 1,000 unit 08/10/19 13:24 Heparin - IVPUSH PRN PRN Heparin Heparin Sodium (Porcine) 5,000 unit 08/10/19 13:24 Heparin - IVPUSH PRN PRN Heparin Heparin Sodium (Porcine) 25, 500 mls @ 20 mls/hr 08/10/19 13:24 000 unit/ Sodium Chloride IV TITR [facility] Protocol 1,000 UNIT/HR Polyethylene Glycol 17 gm 08/10/19 22:00 Miralax (For Daily Use) - PO BID [facility] ASSESSMENT/PLAN: 43 y/o M with PMH morbid obesity, gout, lumbar herniated disc, who presented for sudden SOB that occurred this AM. CTA revealed prominent acute embolus in distal aspect of R pulm artery, extending into R lower lobar artery. Also with saddle embolus along bifurcation of the main pulm a. trunk. ICU consulted for saddle PE and concern of potential decompensation/ development of obstructive shock. #Neuro -AAO x 3, neuro intact #Pulm +acute embolus distal R pulm artery, extending into R lower lobar artery +saddle PE -submassive PE, currently hemodynamically stable -c/w NC 02 PRN to maintain sat > 90% -c/w hep gtt -ECHO (08/10) shows no pericardial effusion, otherwise limited -will need hypercoaguability w/u #F/E/N not requiring IVF at this time continue to follow lytes reg diet #PPX continue heparin gtt plan to switch to eliquis 10 mg BID #Dispo transfer to tele Destin Potter MD PGY-1, Critical Care/ICU [phone] Visit type - Emergency Visit Emergency Visit: Yes ED Registration Date: 08/06/19 Care time: The patient presented to the Emergency Department on the above date and was hospitalized for further evaluation of their emergent condition. - New Patient This patient is new to me today: No - Critical Care Critical Care patient: Yes Total Critical Care Time (in minutes): 35 Critical Care Statement: The care of this patient involved high complexity decision making to prevent further life threatening deterioration of the patient 's condition and/or to evaluate & treat vital organ system(s) failure or risk of failure. ATTENDING PHYSICIAN STATEMENT I saw and evaluated the patient. I reviewed the resident's note and discussed the case with the resident. I agree with the resident's findings and plan as documented. SUBJECTIVE: OBJECTIVE: ASSESSMENT AND PLAN:
--- NOTE | 2019-08-10 18:40 | PN ---
Progress Note (short form) - Note Progress Note: patient seen and examined in ICU in bed no O2 sat 98% has been able to ambulate in room some chest discomfort but no pain / diaphoresis / or significant dyspnea Vital Signs Period Temp Pulse Resp BP Sys/Mo Pulse Ox Last 24 Hr 97.3 F-98.4 F 67-100 14-28 117-167/68-123 94-100 obese male / comfortable neckk supple heart S1/S2 reg lung clear bilat abd obese / soft ext no calf tenderness no edema CBC, BMP 08/10/19 12:15 08/09/19 07:24 Active Medications Acetaminophen (Tylenol -) 650 mg PO Q6H PRN PRN Reason: Fever Or Pain Apixaban (Eliquis -) 10 mg PO BID [facility] Stop: 08/17/19 22:00 Apixaban (Eliquis -) 5 mg PO BID [facility] Stop: 08/25/19 22:00 Heparin Sodium (Porcine) (Heparin -) 1,000 unit IVPUSH PRN PRN PRN Reason: Heparin Heparin Sodium (Porcine) (Heparin -) 5,000 unit IVPUSH PRN PRN PRN Reason: Heparin Heparin Sodium (Porcine) 25, (000 unit/ Sodium Chloride) 500 mls @ 20 mls/hr IV TITR [facility]; Protocol Last Admin: 08/10/19 15:00 Dose: 1,400 unit/hr, 28 mls/hr Polyethylene Glycol (Miralax (For Daily Use) -) 17 gm PO BID [facility] ASSMT / PLAN 43 y/o M with PMH morbid obesity, gout, lumbar herniated disc, who presented for sudden SOB that occurred this AM. CTA revealed prominent acute embolus in distal aspect of R pulm artery, extending into R lower lobar artery. Also with saddle embolus along bifurcation of the main pulm a. trunk. ICU consulted for saddle PE and concern of potential decompensation/ development of obstructive shock. #Neuro -AAO x 3, neuro intact #Pulm +acute embolus distal R pulm artery, extending into R lower lobar artery +saddle PE -wells for PE: score 1.5. low risk . pt w/ gout can be risk fx per some studies -risk fx: morbid obesity, recent trip Sat -w/submassive PE, currently hemodynamically stable -c/w NC O2 as needed to maintain sat -ECHO 08/07 morning shows mild RV dilation and grossly normal RV systolic function. w/ troponins 0.14. c/t trend -await repeat echo to determine RV strain -IR has deferred consult, will recall #Morbid obesity extensive discussion with patient and family --diet / weight loss weight loss sleep study as out patient
[2019-08-10] MEDS: APIXABAN 5 MG TABLET PO SCH (21:36)
[2019-08-10] MEDS: POLYETHYLENE GLYCOL 3350 119 GM BTL PO SCH (21:37)
[2019-08-11 06:42] LABS: HEMATOCRIT 43.2 % (35.4-49); HEMOGLOBIN 14.4 GM/dL (11.7-16.9); MCH 29.7 pg (25.7-33.7); MCHC 33.3 g/dl (32.0-35.9); MEAN CELL VOLUME 89.3 fl (80-96); MEAN PLT VOLUME 8.1 fl (7.5-11.1); PLATELET COUNT 201 K/MM3 (134-434); RBC 4.84 M/mm3 (4.00-5.60); RDW 14.1 % (11.9-15.9); WHITE BLOOD COUNT 7.8 K/mm3 (4.0-10.0)
[2019-08-11] MEDS ORDERED: PT OWN MED DRAWER 7, Y5N ONE (09:04)
[2019-08-11] MEDS: POLYETHYLENE GLYCOL 3350 119 GM BTL PO SCH ×2 (09:29→22:19)
[2019-08-11] MEDS: APIXABAN 5 MG TABLET PO SCH ×2 (09:29→21:30)
--- NOTE | 2019-08-11 11:09 | PN ---
Progress Note, Physician History of Present Illness: PULMONARY ALERT,COMFORTABLE,-RESP DISTRESS,-SOB - Current Medication List Current Medications: Active Medications Acetaminophen (Tylenol -) 650 mg PO Q6H PRN PRN Reason: Fever Or Pain Apixaban (Eliquis -) 10 mg PO BID [facility] Stop: 08/17/19 22:00 Last Admin: 08/11/19 09:29 Dose: 10 mg Apixaban (Eliquis -) 5 mg PO BID [facility] Stop: 08/25/19 22:00 Heparin Sodium (Porcine) (Heparin -) 1,000 unit IVPUSH PRN PRN PRN Reason: Heparin Heparin Sodium (Porcine) (Heparin -) 5,000 unit IVPUSH PRN PRN PRN Reason: Heparin Heparin Sodium (Porcine) 25, (000 unit/ Sodium Chloride) 500 mls @ 20 mls/hr IV TITR [facility]; Protocol Last Admin: 08/10/19 15:00 Dose: 1,400 unit/hr, 28 mls/hr Polyethylene Glycol (Miralax (For Daily Use) -) 17 gm PO BID [facility] Last Admin: 08/11/19 09:29 Dose: Not Given - Objective Vital Signs: Vital Signs Temperature 97.6 F 08/11/19 10:00 Pulse Rate 84 08/11/19 10:00 Respiratory Rate 20 08/11/19 10:00 Blood Pressure 130/78 08/11/19 10:00 O2 Sat by Pulse Oximetry (%) 97 08/11/19 10:46 Constitutional: Yes: Calm, Obese Eyes: Yes: WNL HENT: Yes: WNL Neck: Yes: WNL Cardiovascular: Yes: Regular Rate and Rhythm, S1, S2 Respiratory: Yes: CTA Bilaterally Gastrointestinal: Yes: Normal Bowel Sounds, Soft Extremities: Yes: WNL Edema: No Labs: CBC, BMP 08/11/19 06:15 08/09/19 07:24 INR, PTT INR 1.08 (0.83-1.09) 08/07/19 06:40 Problem List - Problems (1) Morbid obesity due to excess calories Code(s): E66.01 - MORBID (SEVERE) OBESITY DUE TO EXCESS CALORIES (2) Chest tightness Code(s): R07.89 - OTHER CHEST PAIN (3) Pulmonary embolism Code(s): I26.99 - OTHER PULMONARY EMBOLISM WITHOUT ACUTE COR PULMONALE Qualifiers: Chronicity: acute Acute cor pulmonale presence: unspecified Qualified Code(s): I26.92 - Saddle embolus of pulmonary artery without acute cor pulmonale Assessment/Plan ASSESSMENT AND PLAN: Acute Pulmonary Emboli Morbid Obesity Likely Obstructive Sleep Apnea - anticoagulation - O2 to keep Spo2 >90% - outpt NPSG DR BOATENG
[2019-08-11 12:07] LABS: HEMATOCRIT 44.3 % (35.4-49); HEMOGLOBIN 14.6 GM/dL (11.7-16.9); MCH 29.7 pg (25.7-33.7); MCHC 33.1 g/dl (32.0-35.9); MEAN CELL VOLUME 89.8 fl (80-96); MEAN PLT VOLUME 8.4 fl (7.5-11.1); PLATELET COUNT 210 K/MM3 (134-434); RBC 4.93 M/mm3 (4.00-5.60); RDW 14.2 % (11.9-15.9); WHITE BLOOD COUNT 8.3 K/mm3 (4.0-10.0)
[2019-08-11] MEDS: HEPARIN - 25,000 UNIT in SODIUM CHLORIDE 495 ML IV SCH (13:59)
[2019-08-12 07:23] LABS: HEMATOCRIT 43.6 % (35.4-49); HEMOGLOBIN 14.7 GM/dL (11.7-16.9); MCH 29.7 pg (25.7-33.7); MCHC 33.6 g/dl (32.0-35.9); MEAN CELL VOLUME 88.4 fl (80-96); MEAN PLT VOLUME 8.1 fl (7.5-11.1); PLATELET COUNT 193 K/MM3 (134-434); RBC 4.93 M/mm3 (4.00-5.60); RDW 14.3 % (11.9-15.9); WHITE BLOOD COUNT 7.9 K/mm3 (4.0-10.0)
--- NOTE | 2019-08-12 10:43 | PN ---
Progress Note (short form) - Note Progress Note: patient seen and examined in medical forde in bed no O2 sat 98% has been able to ambulate in room some chest discomfort but no pain / diaphoresis / or significant dyspnea at bedside Vital Signs Period Temp Pulse Resp BP Sys/Mo Pulse Ox Last 24 Hr 97.3 F-98.4 F 67-100 14-28 117-167/68-123 94-100 obese male / comfortable neckk supple heart S1/S2 reg lung clear bilat abd obese / soft ext no calf tenderness no edema CBC, BMP 08/10/19 12:15 08/09/19 07:24 Active Medications Acetaminophen (Tylenol -) 650 mg PO Q6H PRN PRN Reason: Fever Or Pain Apixaban (Eliquis -) 10 mg PO BID [facility] Stop: 08/17/19 22:00 Apixaban (Eliquis -) 5 mg PO BID [facility] Stop: 08/25/19 22:00 Heparin Sodium (Porcine) (Heparin -) 1,000 unit IVPUSH PRN PRN PRN Reason: Heparin Heparin Sodium (Porcine) (Heparin -) 5,000 unit IVPUSH PRN PRN PRN Reason: Heparin Heparin Sodium (Porcine) 25, (000 unit/ Sodium Chloride) 500 mls @ 20 mls/hr IV TITR [facility]; Protocol Last Admin: 08/10/19 15:00 Dose: 1,400 unit/hr, 28 mls/hr Polyethylene Glycol (Miralax (For Daily Use) -) 17 gm PO BID [facility] ASSMT / PLAN 43 y/o M with PMH morbid obesity, gout, lumbar herniated disc, who presented for sudden SOB that occurred this AM. CTA revealed prominent acute embolus in distal aspect of R pulm artery, extending into R lower lobar artery. Also with saddle embolus along bifurcation of the main pulm a. trunk. ICU consulted for saddle PE and concern of potential decompensation/ development of obstructive shock. #Neuro -AAO x 3, neuro intact #Pulm +acute embolus distal R pulm artery, extending into R lower lobar artery +saddle PE -wells for PE: score 1.5. low risk . pt w/ gout can be risk fx per some studies -risk fx: morbid obesity, recent trip Sat -w/submassive PE, currently hemodynamically stable -ECHO 08/07 morning shows mild RV dilation and grossly normal RV systolic function. w/ troponins 0.14. c/t trend -IR deferred consult, rpt echo Saturday #Morbid obesity extensive discussion with patient and family --diet / weight loss weight loss sleep study as out patient
--- NOTE | 2019-08-12 10:51 | PN ---
Progress Note, Physician History of Present Illness: pulmonary alert,comfortable,-sob,-cp,ambulating - Current Medication List Current Medications: Active Medications Acetaminophen (Tylenol -) 650 mg PO Q6H PRN PRN Reason: Fever Or Pain Apixaban (Eliquis -) 10 mg PO BID [facility] Stop: 08/17/19 22:00 Last Admin: 08/11/19 21:30 Dose: 10 mg Apixaban (Eliquis -) 5 mg PO BID [facility] Stop: 08/25/19 22:00 Heparin Sodium (Porcine) (Heparin -) 1,000 unit IVPUSH PRN PRN PRN Reason: Heparin Heparin Sodium (Porcine) (Heparin -) 5,000 unit IVPUSH PRN PRN PRN Reason: Heparin Heparin Sodium (Porcine) 25, (000 unit/ Sodium Chloride) 500 mls @ 20 mls/hr IV TITR [facility]; Protocol Last Admin: 08/11/19 13:59 Dose: 1,400 unit/hr, 28 mls/hr Polyethylene Glycol (Miralax (For Daily Use) -) 17 gm PO BID [facility] Last Admin: 08/11/19 22:19 Dose: Not Given - Objective Vital Signs: Vital Signs Temperature 98.3 F 08/12/19 09:00 Pulse Rate 90 08/12/19 09:00 Respiratory Rate 20 08/12/19 09:00 Blood Pressure 136/86 08/12/19 09:00 O2 Sat by Pulse Oximetry (%) 98 08/12/19 09:00 Constitutional: Yes: Obese Eyes: Yes: WNL HENT: Yes: WNL Neck: Yes: WNL Cardiovascular: Yes: Regular Rate and Rhythm, S1, S2 Respiratory: Yes: CTA Bilaterally Gastrointestinal: Yes: Normal Bowel Sounds, Soft, Abdomen, Obese Extremities: Yes: WNL Edema: No Labs: CBC, BMP 08/12/19 06:53 08/09/19 07:24 INR, PTT INR 1.08 (0.83-1.09) 08/07/19 06:40 Problem List - Problems (1) Morbid obesity due to excess calories Code(s): E66.01 - MORBID (SEVERE) OBESITY DUE TO EXCESS CALORIES (2) Chest tightness Code(s): R07.89 - OTHER CHEST PAIN (3) Pulmonary embolism Code(s): I26.99 - OTHER PULMONARY EMBOLISM WITHOUT ACUTE COR PULMONALE Qualifiers: Chronicity: acute Acute cor pulmonale presence: unspecified Qualified Code(s): I26.92 - Saddle embolus of pulmonary artery without acute cor pulmonale Assessment/Plan ASSESSMENT AND PLAN: Acute Pulmonary Emboli sumassive Morbid Obesity Likely Obstructive Sleep Apnea - eliquis - O2 to keep Spo2 >90% - outpt NPSG - Echo today to evaluate rv function - d/c heparin DR BOATENG
[2019-08-12] MEDS: POLYETHYLENE GLYCOL 3350 119 GM BTL PO SCH ×2 (11:14→22:03)
[2019-08-12] MEDS: APIXABAN 5 MG TABLET PO SCH ×2 (11:19→22:03)
--- NOTE | 2019-08-12 11:39 | CON.CARD ---
Consult Consult Specialty:: Cardiology Referred by:: Brie Levy MD Reason for Consultation:: Need for mechanical thrombectomy - History of Present Illness Chief Complaint: Dyspnea and chest pain History of Present Illness: 43 y/o M with PMH morbid obesity, gout, lumbar herniated disc, who presented 07/2019 for sudden SOB increasing while working. "Started to gasp for air." Pt went about his work day, and later in the evening, he had increased STOVER, pleuritic chest pain while ascending his stairs, which he usually does not have. For this reason, he came to the ED for further evaluation. In the ED, pt with desaturation to low 90's, improved on 2L NC. Also with sinus tach of low 100's. D-dimer, trops elevated, thus pt underwent CTA which revealed prominent acute embolus in distal aspect of R pulm artery, extending into R lower lobar artery. Also with saddle embolus along bifurcation of the main pulm a. trunk. Pt started on hep gtt with therapeutic PTT, transitioned to Eliquis. Currently hemodynamically stable with resolution of pleurisy, hypoxia and STOVER for last 3 days. Pt endorses recent 3hr car ride to [place] last Saturday. Otherwise , without hemoptysis, hx malignancy, immobilization, recent sx, new medications , personal or familial clotting d/o, smoking hx, or LE swelling or erythema. LE dopplers negative for DVT. PMH: as above PsxH: tonsillectomy, septal deviation sx, auricular sx meds: colchicine, allopurinol allergies: NKDA FH: parents - HTN, DM, HLD SH: works for [employer] denies cigarette or recreational drug use. drinks alcohol rare - History Source History Provided By: Patient Limitations to Obtaining History: No Limitations - Past Medical History Pulmonary: Yes: Pulmonary Embolus Rheumatology: Yes: Gout - Alcohol/Substance Use Hx Alcohol Use: No - Smoking History Smoking history: Never smoked Have you smoked in the past 12 months: No Aproximately how many cigarettes per day: 0 - Social History History of Recent Travel: Yes ([place] in April) Home Medications - Allergies Allergies/Adverse Reactions: Allergies Allergy/AdvReac Type Severity Reaction Status Date / Time No Known Allergies Allergy Verified 08/07/19 03:07 - Home Medications Home Medications: Ambulatory Orders Oxycodone HCl/Acetaminophen [Percocet 5-325 mg Tablet] 1 - 2 tab PO Q6H #10 tab MDD 8 02/26/16 Tamsulosin HCl [Flomax -] 0.4 mg PO DAILY #14 capsule 02/26/16 Allopurinol [Zyloprim -] 100 mg PO DAILY 08/07/19 Colchicine [Colcrys] 0.6 mg PO DAILY 08/07/19 Review of Systems - Review of Systems Cardiovascular: reports: Chest Pain Respiratory: reports: SOB on Exertion Vital Signs: Vital Signs Temperature 98.3 F 08/12/19 09:00 Pulse Rate 90 08/12/19 09:00 Respiratory Rate 20 08/12/19 09:00 Blood Pressure 136/86 08/12/19 09:00 O2 Sat by Pulse Oximetry (%) 98 08/12/19 09:00 Constitutional: Yes: No Distress, Calm Neck: Yes: Supple Respiratory: Yes: Regular, CTA Bilaterally Gastrointestinal: Yes: Normal Bowel Sounds, Soft, Abdomen, Obese Cardiovascular: Yes: Regular Rate and Rhythm JVD: No Carotid Bruit: No Heart Sounds: Yes: S1, S2 Edema: No - Other Data Labs, Other Data: CBC, BMP 08/12/19 06:53 08/09/19 07:24 INR, PTT INR 1.08 (0.83-1.09) 08/07/19 06:40 NSR @ 67 anterior TWI Tele: SR, no events Echo: Report Reviewed, Image Reviewed Ejection Fraction %: LVEF > or = 40 % Imaging - Results Chest X-ray: Report Reviewed (NAD) Cat Scan: Report Reviewed (Chest CTA: Acute central PE) Ultrasound: Report Reviewed (NO DVT Bilaterally) Problem List - Problems (1) Morbid obesity due to excess calories Code(s): E66.01 - MORBID (SEVERE) OBESITY DUE TO EXCESS CALORIES (2) Pulmonary embolism Code(s): I26.99 - OTHER PULMONARY EMBOLISM WITHOUT ACUTE COR PULMONALE Qualifiers: Pulmonary embolism type: saddle Chronicity: acute Acute cor pulmonale presence: without acute cor pulmonale Qualified Code(s): I26.92 - Saddle embolus of pulmonary artery without acute cor pulmonale Assessment/Plan 1. Acute embolus distal Right pulmonary artery with extension into Right lower lobar artery (?) provoked 2. Submassive PE: evidence of Right ventricular strain on CT imaging, improved on f/u echocardiogram 3. Suspected OSAS 4. Morbid Obesity P:1. AC with Heparin per protocol -> Eliquis 10 bid 2. Repeat ECHO shows resolution of right heart strain 3. O2 to keep Spo2 >90% 4. Will need hypercoaguable work up 5. Cardiac Telemetry monitoring 6. Discussed with vascular intervention team at [facility], no data for mechanical thrombectomy in decreasing incidence of CETPH and as patient has declared that he tolerates clot burden during hospital stay, no indication for mechanical thrombectomy/thrombolysis at the recovery phase 7. Outpt PSG 8. Thank you for consultative opportunity
--- NOTE | 2019-08-12 11:39 | PN ---
Progress Note (short form) - Note Progress Note: patient seen and examined in medical forde nose bleed last night / this am day #2 Eliquis / heparin drip in bed no O2 sat 98% has been able to ambulate in room some chest discomfort but no pain / diaphoresis / or significant dyspnea at bedside Vital Signs Period Temp Pulse Resp BP Sys/Mo Pulse Ox Last 24 Hr 97.3 F-98.4 F 67-100 14-28 117-167/68-123 94-100 obese male / comfortable neckk supple heart S1/S2 reg lung clear bilat abd obese / soft ext no calf tenderness no edema CBC, BMP 08/12/19 06:53 08/09/19 07:24 CBC, BMP 08/10/19 12:15 08/09/19 07:24 Active Medications Acetaminophen (Tylenol -) 650 mg PO Q6H PRN PRN Reason: Fever Or Pain Apixaban (Eliquis -) 10 mg PO BID [facility] Stop: 08/17/19 22:00 Last Admin: 08/12/19 11:19 Dose: 10 mg Apixaban (Eliquis -) 5 mg PO BID [facility] Stop: 08/25/19 22:00 Heparin Sodium (Porcine) (Heparin -) 1,000 unit IVPUSH PRN PRN PRN Reason: Heparin Heparin Sodium (Porcine) (Heparin -) 5,000 unit IVPUSH PRN PRN PRN Reason: Heparin Heparin Sodium (Porcine) 25, (000 unit/ Sodium Chloride) 500 mls @ 20 mls/hr IV TITR [facility]; Protocol Last Admin: 08/11/19 13:59 Dose: 1,400 unit/hr, 28 mls/hr Polyethylene Glycol (Miralax (For Daily Use) -) 17 gm PO BID [facility] Last Admin: 08/12/19 11:14 Dose: Not Given ASSMT / PLAN 43 y/o M with PMH morbid obesity, gout, lumbar herniated disc, who presented for sudden SOB that occurred this AM. CTA revealed prominent acute embolus in distal aspect of R pulm artery, extending into R lower lobar artery. Also with saddle embolus along bifurcation of the main pulm a. trunk. ICU consulted for saddle PE and concern of potential decompensation/ development of obstructive shock. #Neuro -AAO x 3, neuro intact #Pulm +acute embolus distal R pulm artery, extending into R lower lobar artery +saddle PE -wells for PE: score 1.5. low risk . pt w/ gout can be risk fx per some studies -risk fx: morbid obesity, recent trip Sat -w/submassive PE, currently hemodynamically stable -case discussed with pulmonary and with Cardiology - appreciate input -ECHO 08/07 morning shows mild RV dilation and grossly normal RV systolic function. w/ troponins 0.14. c/t trend -repeat echo today to determine RV strain -IR has deferred consult, - has not seen patient -- repeated request -Cardiology consult Dr Sommers #Morbid obesity extensive discussion with patient and family --diet / weight loss weight loss sleep study as out patient # nose bleed 2/2 to A/C hold heparin today -- consider d/c after echo completed
[2019-08-12 12:47] LABS: HEMATOCRIT 47.6 % (35.4-49); HEMOGLOBIN 15.5 GM/dL (11.7-16.9); MCH 29.4 pg (25.7-33.7); MCHC 32.6 g/dl (32.0-35.9); MEAN CELL VOLUME 90.2 fl (80-96); MEAN PLT VOLUME 8.4 fl (7.5-11.1); PLATELET COUNT 238 K/MM3 (134-434); RBC 5.28 M/mm3 (4.00-5.60); RDW 14.3 % (11.9-15.9); WHITE BLOOD COUNT 9.8 K/mm3 (4.0-10.0)
--- NOTE | 2019-08-12 13:41 | ECHO ---
Name: PATSY LOPEZ Exam:Adult Echocardiogram Study Date: 08/12/2019 11:35 AM Age: 43 yrs Reason For Study: RVF PULMONARY EMBOLISM Height: 69 in Weight: 325 lb BSA: 2.5 m2 Doppler Measurements & Calculations MV E max gwendolyn: 47.1 cm/sec Ao V2 max: 124.9 cm/sec MV A max gwendolyn: 48.0 cm/sec Ao max P.2 mmHg MV E/A: 0.98 MV dec time: 0.15 sec LV V1 max P.9 mmHg PA V2 max: 82.8 cm/sec LV V1 max: 85.4 cm/sec PA max P.7 mmHg PI Vmax: 67.9 cm/sec Procedure A two-dimensional transthoracic echocardiogram with color flow and Doppler was performed in limited v iews only. The study was technically difficult with many images being suboptimal in quality. Left Ventricle The left ventricular size, thickness and function are normal. The left ventricular ejection fraction is normal. Regional wall motion abnormalities cannot be excluded due to limited visualization. Right Ventricle The right ventricle is not well visualized. Mitral Valve The mitral valve is not well visualized. Tricuspid Valve The tricuspid valve is not well visualized. Aortic Valve The aortic valve is not well visualized. Pulmonic Valve The pulmonic valve is not well visualized. Interpretation Summary A two-dimensional transthoracic echocardiogram with color flow and Doppler was performed in limited v iews only. The study was technically difficult with many images being suboptimal in quality. The left ventricular size, thickness and function are normal The left ventricular ejection fraction is normal. Regional wall motion abnormalities cannot be excluded due to limited visualization. The right ventricle is not well visualized. The mitral valve is not well visualized. The tricuspid valve is not well visualized. The aortic valve is not well visualized. The pulmonic valve is not well visualized. MD Germán Vides 08/12/2019 01:40 PM
[2019-08-13 08:06] LABS: BASO % 0.5 % (0-2.0); EOS % 2.4 % (0-4.5); HEMATOCRIT 44.1 % (35.4-49); HEMOGLOBIN 14.9 GM/dL (11.7-16.9); LYMPH % 33.4 % (8-40); MCH 29.8 pg (25.7-33.7); MCHC 33.7 g/dl (32.0-35.9); MEAN CELL VOLUME 88.6 fl (80-96); MEAN PLT VOLUME 8.3 fl (7.5-11.1); NEUT % 55.7 % (42.8-82.8); PLATELET COUNT 222 K/MM3 (134-434); RBC 4.98 M/mm3 (4.00-5.60); RDW 14.2 % (11.9-15.9); WHITE BLOOD COUNT 7.9 K/mm3 (4.0-10.0)
[2019-08-13 08:26] LABS: BLOOD UREA NITROGEN 12.7 mg/dL (7-18); CALCIUM 9.1 mg/dL (8.5-10.1); CREATININE 1.1 mg/dL (0.55-1.3); POTASSIUM 4.1 mmol/L (3.5-5.1)
--- NOTE | 2019-08-13 09:17 | PN ---
Progress Note, Physician History of Present Illness: STOVER and pleurisy resolved, no longer tachycardic on telemetry monitoring. Brief epistaxis resolved. - Current Medication List Current Medications: Active Medications Acetaminophen (Tylenol -) 650 mg PO Q6H PRN PRN Reason: Fever Or Pain Apixaban (Eliquis -) 10 mg PO BID [facility] Stop: 08/17/19 22:00 Last Admin: 08/12/19 22:03 Dose: 10 mg Apixaban (Eliquis -) 5 mg PO BID [facility] Stop: 08/25/19 22:00 Polyethylene Glycol (Miralax (For Daily Use) -) 17 gm PO BID [facility] Last Admin: 08/12/19 22:03 Dose: Not Given - Objective Vital Signs: Vital Signs Temperature 97.9 F 08/13/19 01:00 Pulse Rate 83 08/13/19 05:00 Respiratory Rate 20 08/13/19 05:00 Blood Pressure 101/76 08/13/19 05:00 O2 Sat by Pulse Oximetry (%) 98 08/12/19 21:00 Constitutional: Yes: No Distress, Calm Neck: Yes: Supple Cardiovascular: Yes: Regular Rate and Rhythm Respiratory: Yes: Regular, CTA Bilaterally Gastrointestinal: Yes: Normal Bowel Sounds, Soft Edema: No Labs: CBC, BMP 08/13/19 07:08 08/13/19 07:08 INR, PTT INR 1.08 (0.83-1.09) 08/07/19 06:40 - ....Imaging EKG: Report Reviewed (Tele: NSR) Problem List - Problems (1) Morbid obesity due to excess calories Code(s): E66.01 - MORBID (SEVERE) OBESITY DUE TO EXCESS CALORIES (2) Pulmonary embolism Code(s): I26.99 - OTHER PULMONARY EMBOLISM WITHOUT ACUTE COR PULMONALE Qualifiers: Pulmonary embolism type: saddle Chronicity: acute Acute cor pulmonale presence: without acute cor pulmonale Qualified Code(s): I26.92 - Saddle embolus of pulmonary artery without acute cor pulmonale Assessment/Plan 08/12/2019 Echo: Normal RV fxn with normal donut shaped LV, no D shaped septum c /w volume/pressure overload 1. Acute embolus distal Right pulmonary artery with extension into Right lower lobar artery (?) provoked 2. Submassive PE: evidence of Right ventricular strain on CT imaging, resolved on f/u echocardiogram 3. Suspected OSAS 4. Morbid Obesity P:1. A/C with Eliquis 10 bid for 1 week then 5 bid for 6 months 2. Repeat ECHO shows resolution of right heart strain 3. O2 to keep Spo2 >90% 4. Will need hypercoaguable work up as outpatient 5. Discussed with vascular intervention team at [place], no data for mechanical thrombectomy in decreasing incidence of CETPH and as patient has declared that he tolerates clot burden during hospital stay, no indication for mechanical thrombectomy/thrombolysis at the recovery phase 6. Outpt PSG, d/c planning
[2019-08-13] MEDS: POLYETHYLENE GLYCOL 3350 119 GM BTL PO SCH (10:18)
[2019-08-13] MEDS: APIXABAN 5 MG TABLET PO SCH (10:18)
--- NOTE | 2019-08-13 11:09 | DS ---
Physical Examination Vital Signs: Vital Signs Temperature 97.9 F 08/13/19 01:00 Pulse Rate 83 08/13/19 05:00 Respiratory Rate 20 08/13/19 09:00 Blood Pressure 101/76 08/13/19 05:00 O2 Sat by Pulse Oximetry (%) 97 08/13/19 09:00 Findings/Remarks: Chief Complaint: Dyspnea and chest pain History of Present Illness: 43 y/o M with PMH morbid obesity, gout, lumbar herniated disc, who presented 07/2019 for sudden SOB increasing while working. "Started to gasp for air." Pt went about his work day, and later in the evening, he had increased STOVER, pleuritic chest pain while ascending his stairs, which he usually does not have. For this reason, he came to the ED for further evaluation. In the ED, pt with desaturation to low 90's, improved on 2L NC. Also with sinus tach of low 100's. D-dimer, trops elevated, thus pt underwent CTA which revealed prominent acute embolus in distal aspect of R pulm artery, extending into R lower lobar artery. Also with saddle embolus along bifurcation of the main pulm a. trunk. Pt started on hep gtt with therapeutic PTT, transitioned to Eliquis. Currently hemodynamically stable with resolution of pleurisy, hypoxia and STOVER for last 3 days. Pt endorses recent 3hr car ride to [place] last Saturday. Otherwise , without hemoptysis, hx malignancy, immobilization, recent sx, new medications , personal or familial clotting d/o, smoking hx, or LE swelling or erythema. LE dopplers negative for DVT. PMH: as above PsxH: tonsillectomy, septal deviation sx, auricular sx meds: colchicine, allopurinol allergies: NKDA FH: parents - HTN, DM, HLD SH: works for [employer]. denies cigarette or recreational drug use. drinks alcohol rare +acute embolus distal R pulm artery, extending into R lower lobar artery +saddle PE -wells for PE: score 1.5. low risk . pt w/ gout can be risk fx per some studies -risk fx: morbid obesity, recent trip Sat, [place] -w/submassive PE, has remained hemodynamically stable -case discussed with pulmonary and with Cardiology - appreciate input -ECHO 08/07 morning shows mild RV dilation and grossly normal RV systolic function. w/ troponins 0.14. -08/12/2019 Echo: Normal RV fxn with normal donut shaped LV, no D shaped septum c/w volume/pressure overload -IR consulted and recalled yet never saw the patient -Cardiology consult Dr Sommers appreciated - he further consulted [place] [facility] [place]- but intervention not warranted at this tme per Cardio note : ---Discussed with vascular intervention team at [facility], no data for mechanical thrombectomy in decreasing incidence of CETPH and as patient has declared that he tolerates clot burden during hospital stay, no indication for mechanical thrombectomy/thrombolysis at the recovery phase #Morbid obesity extensive discussion with patient and family --diet / weight loss weight loss sleep study as out patient # nose bleed resolved # office follow up sleep study Heme consult weight loss program Cardio follow up Constitutional: Yes: Well Nourished, No Distress, Obese Eyes: Yes: Conjunctiva Clear, EOM Intact, Occular Prosthesis HENT: Yes: Normocephalic Neck: Yes: Supple, Trachea Midline Cardiovascular: Yes: Regular Rate and Rhythm Respiratory: Yes: Regular, CTA Bilaterally Gastrointestinal: Yes: Normal Bowel Sounds, Soft, Abdomen, Obese Renal/: Yes: WNL Breast(s): Yes: WNL Musculoskeletal: Yes: WNL Edema: No Peripheral Pulses WNL: Yes Integumentary: Yes: WNL Neurological: Yes: WNL ...Motor Strength: WNL Psychiatric: Yes: WNL Labs: CBC, BMP 08/13/19 07:08 08/13/19 07:08 Discharge Summary Problems reviewed: Yes Reason For Visit: pulmonary Embolism Current Active Problems Chest tightness (Acute) Morbid obesity due to excess calories (Acute) Pulmonary embolism (Acute) gout BPH Condition: Improved - Instructions Disposition: HOME - Home Medications Comprehensive Discharge Medication List: Ambulatory Orders Oxycodone HCl/Acetaminophen [Percocet 5-325 mg Tablet] 1 - 2 tab PO Q6H #10 tab MDD 8 02/26/16 Tamsulosin HCl [Flomax -] 0.4 mg PO DAILY #14 capsule 02/26/16 Allopurinol [Zyloprim -] 100 mg PO DAILY 08/07/19 Colchicine [Colcrys] 0.6 mg PO DAILY 08/07/19 Acetaminophen [Tylenol .Regular Strength -] 650 mg PO Q6H PRN tablet 08/13/19 Apixaban [Eliquis -] 5 mg PO BID 30 Days #60 tablet 08/13/19 Apixaban [Eliquis -] 10 mg PO BID 7 Days #14 tablet 08/13/19 Polyethylene Glycol 3350 [Miralax 119 gm Btl -] 17 gm PO BID bottle 08/13/19
[2019-08-13 11:40] VITALS: BP 126/82; PULSE 96; TEMP 97.8
[2019-08-15 09:30] VITALS: BMI 47.9
[2019-08-18] MEDS ORDERED: APIXABAN 5 MG TABLET PO SCH (10:00)
== END 2019-08-13 11:33 | disposition home or self-care (01) | DRG 176 ==
LOC: JER 20:19 → JERBED 23:55 → JICU 08-07 03:53 → J4W 08-10 13:55
PROVIDERS: ADMIT Family Medicine; ATTEND Family Medicine
DX: I26.92 Saddle embolus of pulmonary artery without acute cor pulmonale (principal); Z68.42 Body mass index [BMI] 45.0-49.9, adult; M10.9 Gout, unspecified; M51.26 Other intervertebral disc displacement, lumbar region; E66.01 Morbid (severe) obesity due to excess calories; G47.33 Obstructive sleep apnea (adult) (pediatric); N40.0 Benign prostatic hyperplasia without lower urinary tract symptoms; R04.0 Epistaxis
CPT/HCPCS: 36415; 71045-TC-FY; 71275-TC; 80048; 80053; 81003; 82272; 82550; 82553; 83735; 83880; 84100; 84484; 85025; 85027; 85379; 85610; 85730; 93005; 93010; 93306-TC; 93970-TC; 99285-25; J1644; Q2036

== ENCOUNTER 2020-05-10 23:35 | Emergency (ER) | payer OTHER ==
[2020-05-10 23:54] VITALS: BP 139/85; PULSE 109; TEMP 98.1; BMI 47.9
--- NOTE | 2020-05-10 23:54 | PDOC ---
History of Present Illness - General Chief Complaint: Laceration Stated Complaint: PULLED SKIN TAG OFF SCROTUM BLEEDING History Source: Patient Exam Limitations: No Limitations - History of Present Illness Initial Comments: 05/10/20 23:49 44 yo M h/o PE on eliquis p/w wound to scrotum and bleeding occured while in the shower this evening. States was showering as usual and reports he has a few small skin tag/"bump" on his scrotum and one of them started bleeding while in the shower. States he might have been washing more aggressively than usual but denies shaving in the area prior to onset of symptoms. States initially put pressure on it but since he is on a/c (took his AM dose today but not his PM dose yet) and the bleeding had not stopped at home he came to the ED. Patient reports he currently has a towel between his legs and is squeezing his legs together to hold the towel in place and apply pressure to the area. [place] [facility] [place]. Denies any chest pain, SOB, dizziness/lightheadedness at present time. Denies any pain at site of bleeding. No urinary complaints. No other complaints. Past History - Medical History Allergies/Adverse Reactions: Allergies Allergy/AdvReac Type Severity Reaction Status Date / Time No Known Allergies Allergy Verified 05/10/20 23:38 Home Medications: Ambulatory Orders Oxycodone HCl/Acetaminophen [Percocet 5-325 mg Tablet] 1 - 2 tab PO Q6H #10 tab MDD 8 02/26/16 Tamsulosin HCl [Flomax -] 0.4 mg PO DAILY #14 capsule 02/26/16 Allopurinol [Zyloprim -] 100 mg PO DAILY 08/07/19 Colchicine [Colcrys] 0.6 mg PO DAILY 08/07/19 Acetaminophen [Tylenol .Regular Strength -] 650 mg PO Q6H PRN tablet 08/13/19 Apixaban [Eliquis -] 5 mg PO BID 30 Days #60 tablet 08/13/19 Apixaban [Eliquis -] 10 mg PO BID 7 Days #14 tablet 08/13/19 Polyethylene Glycol 3350 [Miralax 119 gm Btl -] 17 gm PO BID bottle 08/13/19 Anemia: No Asthma: No Cancer: No Cardiac Disorders: No CVA: No COPD: No CHF: No Dementia: No Diabetes: No GI Disorders: No Disorders: No HTN: No Hypercholesterolemia: No Liver Disease: No Seizures: No Thyroid Disease: No - Surgical History Abdominal Surgery: No Appendectomy: No Cardiac Surgery: No Cholecystectomy: No Lung Surgery: No Neurologic Surgery: No Orthopedic Surgery: No - Immunization History Immunization Up to Date: No - Psycho-Social/Smoking History Smoking Status: No Smoking History: Never smoked Have you smoked in the past 12 months: No Number of Cigarettes Smoked Daily: 0 Review of Systems - Review of Systems Able to Perform ROS?: Yes Comments:: 05/10/20 23:53 GENERAL/CONSTITUTIONAL: No fever or chills. No weakness. HEAD, EYES, EARS, NOSE AND THROAT: No change in vision. No ear pain or discharge. No sore throat. CARDIOVASCULAR: No chest pain or shortness of breath. RESPIRATORY: No cough, wheezing, or hemoptysis. GASTROINTESTINAL: No nausea, vomiting, diarrhea or constipation. GENITOURINARY: No dysuria, frequency, or change in urination. +bleeding from scrotal skin MUSCULOSKELETAL: No joint or muscle swelling or pain. No neck or back pain. SKIN: No new rash. NEUROLOGIC: No headache, vertigo, loss of consciousness, or change in strength/sensation. ENDOCRINE: No increased thirst. No abnormal weight change. ALLERGIC/IMMUNOLOGIC: No hives or skin allergy. *Physical Exam - Physical Exam 05/10/20 23:54 GENERAL: Well appearing, in no acute distress HEAD: NCAT EYES: EOMI, sclera anicteric, conjunctiva clear ENT: Auricles normal inspection, nares patent, oropharynx clear without exudates. MMM NECK: Normal ROM, supple LUNGS: CTAB. Good air entry. No wheezes, No Rhonchi and no crackles HEART: RRR, + s1 s2, no murmurs, rubs or gallops ABDOMEN: Soft, nontender, normoactive bowel sounds. No guarding, no rebound. No masses GENITAL: no urethral discharge, no scrotal or testicular tenderness, trace amount of dried blood on inferior aspect of scrotum with miniscule abrased skin without active bleeding, no crepitus, no erythema or increased warmth EXTREMITIES: Warm and well perfused. No LE edema. FROM. No clubbing or cyanosis. No cords, erythema, or tenderness NEUROLOGICAL: Aox3, Speech fluent, face symmetric, tongue/uvula midline. Sens ation grossly intact to light touch. Ambulatory with steady gait. Strength intact. No focal deficits. SKIN: Warm, dry, normal turgor. Medical Decision Making - Medical Decision Making 05/10/20 23:56 44 yo M with bleeding from skin of scrotum likely 2/2 minor local trauma, currently without any bleeding or signs concerning for infection, PE only notable for very small area of abrased skin to scrotum (~1mm) without active bleeding or signs concerning for infection. No symptoms concerning for anemia and no hypotension or tachycardia on exam and patient without any symptoms concerning for anemia. Plan: -d/c with return precautions, recommend pt take his a/c dose when he gets home tonight as previously rxed, recommend PMD f/u as needed This clinical encounter is taking place during a federal and state health care emergency attributable to the novel [place] Virus pandemic. The [employer] of the Department of Health and Human Services has declared, pursuant to the Public Health Service Act 319F-3 (42 U.S.C. 247d-6d), that a covered persons activities related to medical countermeasures against COVID-19 will be immune from liability under Federal and State law. Discharge - Discharge Information Problems reviewed: Yes Clinical Impression/Diagnosis: Abrasion Condition: Improved Disposition: HOME - Admission No - Follow up/Referral - Patient Discharge Instructions Patient Printed Discharge Instructions: DI for Abrasion Additional Instructions: There was no active bleeding or signs of infection on exam. Return to the ED for new or worsening symptoms. You should follow up with your PMD. You should continue to take all your home medications as previously prescribed. Print Language: CYMRO - Post Discharge Activity
== END 2020-05-11 00:05 | disposition home or self-care (01) ==
LOC: FER 23:35
DX: S30.813A Abrasion of scrotum and testes, initial encounter (principal); Y99.8 Other external cause status
CPT/HCPCS: 99282-25

== ENCOUNTER 2023-01-28 04:03 | Inpatient (IN) | payer OTHER ==
[2023-01-28] MEDS ORDERED: FAMOTIDINE 20 MG/50 ML IVPB 20 MG/50 ML MG IVPB ONE ×2 (04:39→04:44)
[2023-01-28] MEDS ORDERED: MAG HYDROX/AL HYDROX/SIMETH 30 ML UNIT-DOSE CUP PO ONE (04:39)
[2023-01-28] MEDS ORDERED: MAG HYDROX/AL HYDROX/SIMETH 30 ML UNIT-DOSE CUP ONE ×2 (04:44→05:07)
[2023-01-28 05:52] LABS: BASO % 0.8 % (0-2.0); EOS % 2.8 % (0-4.5); HEMATOCRIT 42.7 % (35.4-49); HEMOGLOBIN 14.5 GM/dL (11.7-16.9); LYMPH % 37.9 % (8-40); MCH 29.9 pg (25.7-33.7); MEAN CELL VOLUME 87.8 fl (80-96); MEAN PLT VOLUME 8.8 fl (7.5-11.1); MONO % 8.5 % (3.8-10.2); PLATELET COUNT 214 10^3/uL (134-434); RBC 4.87 M/mm3 (4.00-5.60); RDW 13.8 % (11.9-15.9); WHITE BLOOD COUNT 7.5 K/mm3 (4.0-10.0)
[2023-01-28 06:14] LABS: BLOOD UREA NITROGEN 13.3 mg/dL (7-18); CALCIUM 8.1 mg/dL (8.5-10.1)
[2023-01-28 06:19] LABS: BILIRUBIN,TOTAL 0.3 mg/dL (0.2-1); TOT PROT 6.9 g/dl (6.4-8.2)
[2023-01-28] MEDS ORDERED: ASPIRIN 81 MG CHEWABLE TABLETS PO ONE (11:44)
[2023-01-28] MEDS ORDERED: ACETAMINOPHEN 325 MG TABLET (FP) PO PRN (12:13)
[2023-01-28] MEDS ORDERED: POLYETHYLENE GLYCOL (HEALTHYLAX) 3350 17 GM PACKET PO SCH ×2 (12:15→22:00)
[2023-01-28] MEDS ORDERED: ASPIRIN 81 MG CHEWABLE TABLETS ONE (12:43)
[2023-01-28] MEDS ORDERED: PANTOPRAZOLE 40 MG TABLET PO ONE (12:43)
[2023-01-28] MEDS ORDERED: APIXABAN 5 MG TABLET ONE ×2 (12:43→22:05)
[2023-01-28] MEDS: APIXABAN 5 MG TABLET PO SCH ×2 (12:48→22:08)
[2023-01-28] MEDS: PANTOPRAZOLE 40 MG TABLET PO SCH (12:48)
[2023-01-28] MEDS ORDERED: POLYETHYLENE GLYCOL (HEALTHYLAX) 3350 17 GM PACKET PO PRN (13:39)
[2023-01-28] MEDS ORDERED: TAMSULOSIN HCL 0.4 MG CAP ONE (22:05)
[2023-01-28] MEDS: TAMSULOSIN HCL 0.4 MG CAP PO SCH (22:08)
[2023-01-29 01:30] VITALS: BMI 48.7
[2023-01-29 08:59] LABS: CHOLESTEROL 128 mg/dL (50-200); LDL CHOLESTEROL (ONLY SJRH) 82 mg/dL (5-100)
[2023-01-29 09:02] LABS: HDL CHOLESTEROL 37 mg/dL (40-60)
[2023-01-29] MEDS: PANTOPRAZOLE 40 MG TABLET PO SCH (09:23)
[2023-01-29] MEDS: APIXABAN 5 MG TABLET PO SCH ×2 (09:23→22:23)
[2023-01-29] MEDS ORDERED: ALLOPURINOL 100 MG TABLET (FP) PO SCH (10:00)
[2023-01-29] MEDS ORDERED: COLCHICINE 0.6 MG TAB PO SCH (10:00)
[2023-01-29] MEDS ORDERED: ASPIRIN COATED 81 MG TABLET.EC PO SCH (10:00)
[2023-01-29 20:25] VITALS: RESP 20
[2023-01-29] MEDS: TAMSULOSIN HCL 0.4 MG CAP PO SCH (22:23)
[2023-01-30 01:16] VITALS: BP 134/79; PULSE 86; TEMP 97.8
== END 2023-01-30 03:05 | disposition short-term general hospital (02) | DRG 281 ==
LOC: JER 04:03 → JERBED 11:46 → J4W 01-29 00:41
PROVIDERS: ADMIT Internal Medicine; ATTEND Internal Medicine
DX: I21.4 Non-ST elevation (NSTEMI) myocardial infarction (principal); Z68.42 Body mass index [BMI] 45.0-49.9, adult; R07.89 Other chest pain; M10.9 Gout, unspecified; Z86.711 Personal history of pulmonary embolism; E66.01 Morbid (severe) obesity due to excess calories; R77.8 Other specified abnormalities of plasma proteins; K59.00 Constipation, unspecified; I24.9 Acute ischemic heart disease, unspecified
CPT/HCPCS: 0241U-QW; 36415; 71045-TC-FY; 71275-TC; 80053; 80061; 84484; 85025; 85379; 93005; 93010; 93306-TC; 99285-25; Q9967

== ENCOUNTER 2023-12-07 22:52 | Emergency (ER) | payer OTHER ==
[2023-12-07 22:59] VITALS: BP 118/80; PULSE 79; RESP 18; TEMP 98.3; BMI 48.6
[2023-12-07] MEDS ORDERED: ACETAMINOPHEN INJECTION 100 ML IVPB ONE (23:35)
[2023-12-07] MEDS: ACETAMINOPHEN 1000 MG/100 ML BAG IVPB ONE (23:45)
[2023-12-07] MEDS: SODIUM CHLORIDE 0.9% 500 ML INFUS.BAG IV ONE (23:45)
[2023-12-08 00:03] LABS: HEMATOCRIT 46.6 % (35.4-49); HEMOGLOBIN 15.2 G/dL (11.7-16.9); MCH 28.9 pg (25.7-33.7); MCHC 32.5 g/dl (32.0-35.9); MEAN CELL VOLUME 88.8 fl (80-96); MEAN PLT VOLUME 8.6 fl (7.5-11.1); PLATELET COUNT 208.1 10^3/uL (134-434); RBC 5.25 10^6/uL (4.00-5.60); RDW 14.6 % (11.9-15.9); WHITE BLOOD COUNT 10.3 10^3/uL (4.0-10.8)
[2023-12-08 00:10] LABS: PLATELET ESTIMATE ADEQUATE
[2023-12-08 01:23] LABS: POTASSIUM 4.1 mmol/L (3.5-5.1)
[2023-12-08 01:25] LABS: CALCIUM 8.8 mg/dL (8.5-10.1)
[2023-12-08 01:26] LABS: ALBUMIN 3.2 g/dl (3.4-5.0); BLOOD UREA NITROGEN 14.5 mg/dL (7-18)
[2023-12-08 01:29] LABS: CREATININE 1.1 mg/dL (0.55-1.3)
[2023-12-08 01:30] LABS: BILIRUBIN,TOTAL 0.4 mg/dL (0.2-1)
[2023-12-08 01:31] LABS: TOT PROT 7.3 g/dl (6.4-8.2)
[2023-12-08] MEDS ORDERED: ACETAMINOPHEN 650 MG SUPP.RECT ONE (02:31)
== END 2023-12-08 02:50 | disposition home or self-care (01) ==
LOC: FER 22:52
PROC: 3E033NZ Introduction of Analgesics, Hypnotics, Sedatives into Peripheral Vein, Percutaneous Approach (ICD-10-PCS; principal; 2023-12-07)
DX: R07.89 Other chest pain (principal); R06.02 Shortness of breath
CPT/HCPCS: 36415; 71275-TC; 80053; 84484; 85025; 85379; 93005; 99285-25; J0131; Q9967

== ENCOUNTER 2024-05-26 12:20 | Emergency (ER) | payer OTHER ==
[2024-05-26 12:41] VITALS: BP 124/96; PULSE 84; RESP 18; TEMP 98.6; BMI 47.9
== END 2024-05-26 16:25 | disposition home or self-care (01) ==
LOC: FER 12:20
DX: M25.571 Pain in right ankle and joints of right foot (principal); M25.471 Effusion, right ankle
CPT/HCPCS: 73610-TC-RT-FY; 73630-TC-RT-FY; 93971-TC; 99284-25